=== PATIENT | male | born 1940 | race Caucasian/White ===

== ENCOUNTER 2016-05-12 12:16 | Inpatient (IN) | payer MEDICARE ==
[~2016-05-12] VITALS: Ht 170.2 cm; Wt 70.4 kg
[2016-05-12] VITALS (7 sets, daily range): BP systolic 105–132; BP diastolic 71–94; PULSE 81–108; RESP 15–23; O2SAT 95–100
[2016-05-12 13:18] LABS: BASOPHILS % (AUTO) 0.1 % (0-3); EOSINOPHILS % (AUTO) 0.1 % (0-5); MONOCYTES % (AUTO) 3.5 % (4-12); Mean Corpuscular Volume 91.5 fL (81-100); NEUTROPHILS % (AUTO) 91.1 % (40-74); Platelet Count 239 bil/L (150-400)
[2016-05-12] MEDS ORDERED: 0.9% Sodium Chloride 250 ML IV PRN (13:50)
[2016-05-12 13:53] LABS: INR 1.32 ratio
[2016-05-12 14:11] LABS: Magnesium 3.1 mg/dL (1.6-2.6)
[2016-05-12 14:12] LABS: TROPONIN T 0.015 ug/L (0.0-0.011)
--- NOTE | 2016-05-12 14:18 | DRSVH ---
PROCEDURE: X-RAY CHEST ONE VIEW, PORTABLE ([id number]) INDICATIONS: CHEST PAIN TECHNIQUE: One view of the chest was acquired. COMPARISON: None. FINDINGS: Surgical changes and devices: None. Lungs and pleura: No pleural effusions or pneumothorax. Lungs are clear. Lung volumes are decrease d Mediastinum: Mediastinal contours appear normal. Heart size is normal. Bones and chest wall: No suspicious bony lesions. Overlying soft tissues appear unremarkable. IMPRESSION: Low lung volumes and scattered atelectasis. Dictated by: Tejas Wise M.D. on 05/12/2016 at 14:15 Approved by: Tejas Wise M.D. on 05/12/2016 at 14:16
[2016-05-12] MEDS ORDERED: MULT-432 PO (14:22)
[2016-05-12] MEDS ORDERED: ASPI-973 PO (14:22)
[2016-05-12] MEDS ORDERED: Insulin Human REGular-Omnicell 100 Unit/mL IV ONE (14:25)
[2016-05-12] MEDS ORDERED: Furosemide 10 mg/mL 2 mL Inj IVPUSH ONE (14:25)
[2016-05-12] MEDS ORDERED: Sodium Polystyrene Sulfonate 0.25 Gm/mL 500 mL Suspension PO ONE (14:25)
[2016-05-12] MEDS ORDERED: Sodium Bicarb (50 mEq) 8.4% 1 mEq/mL 50 mL Syringe IVPUSH ONE (14:25)
[2016-05-12] MEDS ORDERED: Calcium GLUCOnate 10% (Gm) 1 Gm/10 mL Inj IVPUSH PRN (14:25)
--- NOTE | 2016-05-12 14:25 | ED.REPORT ---
HPI-Chest Pain 40 and Over Date of Service May 12, 2016 ED Provider: Tacos Bernal DO History of Present Illness: Jonathan Rivera is a 76 year old man with with a negative PMH on no medications having not seen a doctor in years. He presents with a several month history of increasingly debilitating back pain, an equally long history of recurrent epistaxis, and a 2 week history of increasing CARLSON with chest pain and SOB brought about by minimal exertion. He further complains of incontinence of bowel, and perhaps saddle anesthesia for quite a long time, he cannot recall exactly when it began but likely months to a year. Nursing Notes Stated Complaint: SHORTNESS OF BREATH/ CHEST PAIN Chief Complaint: Chest Pain Nursing Notes Reviewed: Yes Allergies: Coded Allergies: No Known Allergies (Unverified , 05/12/16) Scheduled Aspirin (Aspirin) 81 Mg Tablet 81 MG PO DAILY Multivitamin W-Minerals/Lutein (Pub Multivitamin 50 Plus Tab) 1 Each Tablet 1 EACH PO DAILY General Time Seen by MD: 13:20 Chief Complaint Chest pain Hx Obtained From: Patient Sudden in Onset?: No Onset Occurred: More than a week ago... (>6 months) Symptom Duration: Waxes and wanes Location: : Chest left Quality: Aching Migration/Movement: Reports: None Severity: Current: Mild Severity: Maximum: Severe Similar Sx Previous: Yes Past Medical History Past Medical History Denies, last physician encounter in the 1970s Smoking History Former Smoker Social History Alcohol Use: "Social" Review of Systems Constitutional: Reports: Weakness - generalized Respiratory: Reports: Dyspnea on exertion, Shortness of breath Cardiovascular: Reports: Chest pain, Dyspnea on exertion Musculoskeletal: Reports: Back pain, Joint pain Neurologic: Reports: Bladder dysfunction, Bowel dysfunction, Numbness Complete sys rev & neg: except as marked. Physical Exam Physical Exam Notes: Gen: A/O x3, pleasant cooperative gentleman in mild acute distress secondary to back pain Neck: Supple, non tender, full ROM HEENT: Nose not actively bleeding from nares, large pharyngeal blood clot in back of throat, arcus senilis BL CV: RRR, multiple loud murmurs at all anterior listening posts Abdomen soft, non tender, no organomegally Extr: Moderate BL LE edema, no cyanosis or clubbing Skin: Subtle uremic caceres about hairline and maxillary ridge, multiple pustular lesions on upper body Initial Vital Signs Vital Signs (First) Date Time Temp Pulse Resp B/P Pulse Ox O2 Delivery O2 Flow Rate FiO2 05/12/16 12:19 35.5 84 15 108/94 95 Room Air Initial VS: Reviewed Interpretation & Diagnostics Lab Results Interpretation Result Diagram: 05/12/16 1312 05/12/16 1312 Test 05/12/16 13:12 05/12/16 13:16 05/12/16 15:10 White Blood Count 10.9th/mm3 (3.8-10.1) Red Blood Count 2.47mil/mm3 (4.40-5.80) Hemoglobin 7.4g/dL (13.8-17.2) Hematocrit 22.6% (41.0-50.0) Mean Corpuscular Volume 91.5fL (81-100) Mean Corpuscular Hemoglobin 30.0pg (27.0-35.0) Mean Corpuscular Hemoglobin Concent 32.7% (32.0-37.0) Red Cell Distribution Width 12.7% (12.3-15.4) Platelet Count 239bil/L (150-400) Neutrophils (%) (Auto) 91.1% (40-74) Lymphocytes (%) (Auto) 3.9% (14-46) Monocytes (%) (Auto) 3.5% (4-12) Eosinophils (%) (Auto) 0.1% (0-5) Basophils (%) (Auto) 0.1% (0-3) Prothrombin Time 14.2sec (8.1-12.5) Prothromb Time International Ratio 1.32ratio Sodium Level 136mEq/L (134-144) Potassium Level 8.1mEq/L (3.5-5.2) Chloride Level 95mEq/L (97-108) Carbon Dioxide Level 6mmol/L (18-29) Blood Urea Nitrogen 237mg/dL (8-27) Creatinine 19.74mg/dL (0.76-1.27) Estimat Glomerular Filtration Rate 2mL/min (>59) Glucose Level 155mg/dL (60-99) Calcium Level 7.8mg/dL (8.5-10.1) Phosphorus Level 15.3mg/dL (2.5-4.9) Magnesium Level 3.1mg/dL (1.6-2.6) Iron Level 46ug/dL (35-150) Total Iron Binding Capacity 198ug/dL (250-450) Percent Iron Saturation 23%sat (15-50) Unsaturated Iron Binding 151.5ug/dL Ferritin 543ng/mL (30-400) Total Bilirubin 0.2mg/dL (0.0-1.2) Aspartate Amino Transf (AST/SGOT) 5U/L (0-50) Alanine Aminotransferase (ALT/SGPT) 5U/L (0-44) Alkaline Phosphatase 51U/L (25-160) Troponin T 0.015ug/L (0.0-0.011) Pro-B-Type Natriuretic Peptide 2478pg/mL (0-486) Total Protein 5.9g/dL (6.4-8.4) Albumin 3.3g/dL (3.4-5.0) Parathyroid Hormone (Intact) 320pg/mL (15-65) Hold Vincent Top Tube Received (Received) Lactic Acid Level 0.6mmol/L (0.4-2.0) Re-Eval/Medical Decision Med Decision/Clinical Course This is a gentleman who has not been seen by a doctor since 1970, routine labwork revealed the findings outlined above with grossly elevated BUN/Cr and K. Dr. Kramer from nephrology was urgently contacted and emergent dialysis was arranged. He will be admitted for an extensive evaluation and treatment program including but not limited to Dialysis, cardiovascular workup, and evaluation of his spinal orthopedic issues. Counseled Regarding: Diagnosis, Lab results, Need for admission Discharge & Departure Shift Change Sign-Out Patient Care Transferred: Yes Discussed Complaint(s): Yes Laboratory Evaluation: Lab evaluation discussed Imaging Studies: Imaging discussed Response to Therapy: Unchanged Primary Impression: End stage renal disease Additional Impressions: Hyperkalemia Symptomatic anemia Disposition: ADMITTED TO HOSPITAL Discharge Condition All VS Reviewed: Yes Condition: No Change Referrals: NOPCP Crit Care Except Billable Proc Time Spent: 30-74 minutes Services Performed: Patient management by me, Time spent at bedside, Reviewing test results Critical Care Notes: See MDM Attending Statement The patient was seen and examined together with Dr. Epperson on 05/12/16 and I have added additional information to the note above. Audi Epperson DO May 12, 2016 13:35 Tacos Bernal DO May 12, 2016 16:30
[2016-05-12] MEDS ORDERED: Calcium GLUCO 10% (mEq) Inj 9.3 MEQ in Dextrose 5% 100 ML IV ONE (14:30)
[2016-05-12] MEDS ORDERED: SODIUM CHLORIDE 0.9% IV ONE (14:35)
[2016-05-12] MEDS ORDERED: Furosemide 10 mg/mL 4 mL Inj IVPUSH ONE (14:35)
[2016-05-12] MEDS ORDERED: DESMOPRESSIN IV ONE (14:35)
[2016-05-12] MEDS ORDERED: Polyethylene Glycol (PEG) 17 Gm Powder PO PRN (14:45)
[2016-05-12] MEDS ORDERED: Senna-Docusate 8.6-50 mg Tablet PO PRN (14:45)
[2016-05-12] MEDS ORDERED: Ondansetron 2 mg/mL 2 mL Inj IVPUSH PRN (14:45)
[2016-05-12] MEDS ORDERED: Alum-Mag Hydrox-Simeth 30 mL Suspension PO PRN (14:45)
--- NOTE | 2016-05-12 16:03 | PCM.HPMED ---
Subjective Date of Service May 12, 2016 Primary Provider: Admitting Physician: Mark Perea MD Primary Care Physician: Nopblade Attending Physician: Mark Perea MD Admit Status: From the Emergency Department Chief Complaint: SOB with exertion and chest pain History of Present Illness: 76-year-old male with no past medical history, who has not seen a doctor since 1970, presents to the ED with 2-3 months of worsening shortness of breath with exertion, back pain, increasing chest pain, and persistent epistaxis. Labwork in the ED showed severe renal failure with a BUNs/cre of 237/19.74. On interview in the emergency department, the patient also attests to possible saddle anesthesia. Patient states that couple months ago he noticed increased exertional dyspnea but denies increased edema for orthopnea, but does attest to possible PND. He is unable to characterize the chest pain states that it does not radiate to his arm or neck, does not increase on exertion. Patient also complains of incontinence. Patient denies fever, chills, nausea, vomiting, radiating or tearing chest pain, sick contacts, dizziness, lightheadedness, abdominal pain, or recent illness. Labwork emergency department revealed severe kidney dysfunction with extreme creatinine 19.74 and a potassium of 8.1. and non-from nephrology was called and patient is being set up for emergent dialysis. Patient's chloride was 95 and bicarbonate was 6. Glucose was elevated 155. LFTs were normal, magnesium was elevated at 3.1, very mild elevated troponin of 0.015, BNP 2478. Patient will have a mild white count 10.7 and hemoglobin of 7.4 with neutrophil count of 91.1. Lactic acid was negative. Chest x-ray was unremarkable for cardiopulmonary disease. Review of Systems: Complete review of systems performed; pertinent positives negatives per history of present illness, all other systems reviewed and are negative. Allergies Coded Allergies: No Known Allergies (Unverified , 05/12/16) Home Medications Aspirin (Aspirin) 81 Mg Tablet 81 MG PO DAILY Multivitamin W-Minerals/Lutein (Pub Multivitamin 50 Plus Tab) 1 Each Tablet 1 EACH PO DAILY PMH No known medical history History of Alcohol abuse Surgical History No known surgical history Family History Mother of "obesity" Father of ALS Social History Occupation: retired Hx Alcohol Use: No (declines) Hx Substance Use: No (declines) Hx Tobacco Use: Yes Smoking Status: Former Smoker Living Arrangement: Alone Exam Vital Signs Vital Sign - Last Date Time Temp Pulse Resp B/P Pulse Ox O2 Delivery O2 Flow Rate FiO2 05/12/16 14:20 16 119/77 95 Room Air 05/12/16 12:19 35.5 84 Exam Gen.: Patient sitting comfortably in bed, no acute distress HEENT: Blood identified on the naris and some on the teeth, no lymphadenopathy, dentition, PERRLA, uremic caceres noted Cardiovascular: Patient appears to be somewhat dry, regular rate and rhythm, pericardial rub Respiratory: Rhonchus breath sounds, crackles laterally, mild inspiratory wheeze Abdomen: Nontender, positive bowel sounds, no masses, lower abdomen is distended likely from the bladder Extremities: Mild pitting edema in the lower legs bilaterally, decreased sensation on plantar surfaces, Neuro: Grossly neurologically intact Psych: Appropriate mood and affect Skin: Uremic caceres noted, no rashes Lab and Diagnostics Result Diagram: 05/12/16 1312 05/12/16 1312 X-Rays, CTs and MRIs Chest x-ray IMPRESSION: Low lung volumes and scattered atelectasis. Dictated by: Tejas Wise M.D. on 05/12/2016 at 14:15 12-lead ECG Patient sinus rhythm with a heart rate of 85, QTC of 49, and inverted T waves in the lateral leads. Assessment & Plan 76-year-old male with no past medical history not currently taking any medications and presents due to chest pain and shortness of breath severe kidney failure Severe acute on chronic kidney failure and hyperkalemia; present admission; ongoing -Etiology at this time for such an acute/chronic kidney failure is undetermined ; potassium on admission > 8; possibly diabetic nephropathy; patient also has a distended bladder suggesting obstructive -Suspect this is may be more of a chronic process -Elevated troponin likely due to kidney disease -Emergent dialysis with Dr. Kramer who is also consulting -Continue to follow labs -Hyperkalemia protocol initiated in the emergency department with 10 units of regular insulin, 1 g calcium gluconate, and D50; Kayexalate was not given as patient is being dialyzed -Vitamin D, PTH, HIV, hepatitis panel, phosphorus all pending -Follow morning labs -Renal ultrasound -[place] Catheter ordered Iron 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, chronic; is on admission; ongoing -Likely secondary to chronic kidney disease -Ferritin, iron, TIBC pending Acute on chronic Chest pain; present on admission; ongoing -Patient states that he has some chest pain today but denies radiation or tearing pain -Likely due to severe uremia due to kidney failure with possible pericarditis -Dialysis is being set up we will reevaluate tomorrow -We will continue to trend troponin and EKG when necessary for new chest pain Suspected chronic congestive heart failure -Patient presents with pericardial rub and some mild edema in the lower extremities; assess her kidney disease likely chronic suspect patient has ongoing heart failure -Patient is also complaining of increased dyspnea on exertion -Echocardiogram pending -BNP is elevated; in the setting of such severe kidney disease is likely meaningless Hyperglycemia; was on admission; ongoing -Patient is not on any medications that can cause hyperglycemia and presents with severe kidney disease, suggesting possible diabetic nephropathy -A1c pending -Medium correctional -Diabetic diet Hyperuremia with AG metabolic acidosis - Pt has bicarb of 6 on admit; extreme BUN - Dialysis Peripheral neuropathy; present on admission; ongoing -Patient has decreased sensation in the plantar surfaces of his feet -Questionable whether this is diabetic, alcoholic, or uremic neuropathy History of alcohol abuse -States he has not had a drink in couple weeks Disposition: Patient being admitted to the CCU due to severe hyperkalemia and kidney failure expected dialysis today. They are expected to remain in the hospital and inpatient status is stable require more than 2 nights due to severity of presentation, duration of treatment, risk of adverse events. Pain Evaluation: Adequate Pain Control Resuscitation Status: CPR: Attempt Resuscitation Attending Statement The patient was seen and examined together with Dr. May on 05/12/2016 and I agree with the history, exam and plan as outlined in the note above. . Louis May DO May 12, 2016 16:03 Mark Perea MD May 13, 2016 16:10
[2016-05-12 16:18] LABS: Phosphorus 15.3 mg/dL (2.5-4.9); Unsaturated Iron Binding 151.5 ug/dL
--- NOTE | 2016-05-12 16:41 | CONS ---
[address] [address] CONSULTATION REPORT PATIENT: PEEWEE THOMAS : 1940 MR#: [id number] ADMIT: 05/12/2016 JOB ID: [id number] DATE OF SERVICE: 05/12/2016 NEPHROLOGY CONSULTATION: REASON FOR CONSULTATION: Management of severe uremia and hyperkalemia. CHIEF COMPLAINT: Malaise and back pain. PRESENT ILLNESS: This is a 76-year-old gentleman without significant past medical history except chronic back pain. He has not seen any physician since 1970. He reported that he has had chronic lower back pain for decades in which he has taken baby aspirin and Aleve as needed. Over the past two months, he started to have worsening malaise, generalized weakness, worsening back pain. He reports having bowel and bladder incontinence. He also has some dyspnea on exertion, lower extremity swelling over the past couple weeks. He has had recurrent epistaxis, unknown onset. The patient has no urge to go, no frequency, no urgency. The onset of the symptoms was unknown. He does not have any fever or chills. No nausea, vomiting. He does have loose stool due to incontinence. He does not know the amount of the stool. The patient also reports having like a chest pressure but more toward the epigastric area and the left side at the top of the chest. The onset was unknown. The initial vitals showed the temperature of 35.5, pulse 84, respiratory rate 15, blood pressure 108/94, O2 sat 95% on room air. Initial BMP showed sodium of 136, potassium 8.1, chloride 95, bicarbonate of 6, BUN 237, creatinine 19.74. Glucose 155, calcium 5.8, magnesium 3.1. EKG did not show any peaked T-wave. No significant ST-T changes. Initial chest x-ray showed low lung volumes and scattered atelectasis. WBC was 10.9, hemoglobin was 7.4. PAST MEDICAL HISTORY: Unknown. The patient has not seen any physicians over the past three decades. He does not know whether he has history of diabetes, hypertension, heart disease, dyslipidemia, vasculitis or kidney stones. He does have history of chronic low back pain, now complaining of bowel and bladder incontinence. FAMILY HISTORY: Unknown. 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 He lives at home. He denies current use of alcohol, tobacco or illicit drugs. ALLERGIES: No known drug allergies. REVIEW OF SYSTEMS: Fourteen point review of system was performed. PHYSICAL EXAM: Vitals: Temperature 35.5, pulse 84, respiratory rate 16, blood pressure 119/77, O2 sat 95% on room air. General appearance: Chronically ill-looking, in no acute distress. HEENT: Alopecia, moderate pallor. No icteric sclerae. No JVD. Dry mucous membranes. Old blood noted on the nostrils. No active bleeding. Heart: Regular rhythm. Normal S1, S2. Positive pericardial friction rub. Abdomen: Soft, nontender, nondistended. No hepatosplenomegaly. Extremities: 2+ edema on the lower extremity. No cyanosis, no clubbing of fingers. LABORATORY: Sodium 136, potassium 8.1, chloride 95, bicarbonate 6, BUN 237, creatinine 19.74, glucose 155, calcium 7.8, magnesium 3.1. WBC 10.9, hemoglobin 7.4, INR 1.32. ASSESSMENT: This is a 76-year-old male who does not have significant past medical history except chronic low back pain with bowel and bladder incontinence who came to the hospital due to worsening malaise, lower extremity swelling and epistaxis. He was found to have severe renal insufficiency and hyperkalemia. Hemoglobin was 7.2. We do not know the onset of kidney insufficiency since he has not seen any physician for several decades. Given the evidence of anemia, the patient rather has chronic kidney disease and now reached end-stage renal disease. Per physical examination, the patient has the pericardial friction rub. Laboratory showed metabolic acidosis and hyperkalemia. We will arrange for an emergent dialysis. We will put a right femoral Adelfo catheter. We will start daily hemodialysis. We will first perform 2 hours of dialysis today using 2 K bath. The patient will have another dialysis again tomorrow. The etiology of severe renal insufficiency currently is undetermined. We need to rule out obstruction. I will order a stat kidney sonogram for now. If he is more stable, will later on order a CT of the abdomen and pelvis. I will order a urine protein electrophoresis looking for M protein given history of renal failure, anemia and back pain. Will order echocardiogram. Thank you for the consultation. We will monitor along with you.
--- NOTE | 2016-05-12 17:45 | PCM.PROC ---
Procedure Note Date of Service: May 12, 2016 Pre Procedure Diagnosis: Acute Renal Failure Post Procedure Diagnosis: Acute Renal Failure Procedure: Temporary dialysis catheter placement Provider and Tipple Greaser: Attending: Dr. Jayce Ortega Resident: Dr. Kelli Nelson Indication for Procedure: Dialysis Procedure Details: A time-out was completed verifying correct patient, procedure, site, positioning , and special equipment if applicable. The patient was placed in a dependent position appropriate for central line placement based on the vein to be cannulated. The patients right groin was prepped and draped in sterile fashion. 1% sodium bicarb buffered lidocaine was used to anesthetize the surrounding skin area. A double lumen 13.5 beninese Mahurkar catheter was introduced into the the common femoral vein using the Seldinger technique and under ultrasound guidance. The catheter was threaded smoothly over the guide wire and appropriate blood return was obtained. Each lumen of the catheter was evacuated of air and flushed with sterile saline. The catheter was then sutured in place to the skin and a sterile dressing applied. Perfusion to the extremity distal to the point of catheter insertion was checked and found to be adequate. Dr. Kramer was present for the entire procedure. Estimated Blood Loss: 10 cc The patient tolerated the procedure well and there were no complications. Post Procedure Plan: Hemodialysis Kelli Nelson DO May 12, 2016 17:45
[2016-05-12] MEDS ORDERED: Glucose 40% Oral Gel 15 Gm Tube PO PRN (18:20)
--- NOTE | 2016-05-12 18:23 | PCM.CONSUR ---
Subjective Date of Service: May 12, 2016 History of Present Illness Pt is a 76 y/o gentleman admitted to the medicine service from [facility] ER with renal failure, in need of urgent dialysis for serum potassium of 8.1 with a creatinine of 19.74. He was noted to be in urinary retention and gave a history of "urinary incontinence" for some weeks. He had not "seen a doctor" for many decades. He otherwise had anemia, LE edema, dyspnea, and complaints of epistaxis. Groin vas cath was placed for emergent hemodialysis Urology was asked for help with urethral catheter as "nurses unable to get catheter in." Unclear if any physician attempted. At exam he was undergoing hemodialysis and ready for an abdominal US at the bedside in CCU. Circ phallus. Procedure: Cleaned and prepped with betadyne, adequate lube instilled into urethra after verbal consent. 18fr irby catheter passed readily with gentle pressure. There was immediate return of 1800cc of clear dark yellow urine. Reason for Consultation I was asked by Dr Epperson for evaluation and treatment recommendations regarding a 76 y/o with renal failure, and urinary retention/incontinence. Allergy Allergies: Coded Allergies: No Known Allergies (Unverified , 05/12/16) Medications Aspirin (Aspirin) 81 Mg Tablet 81 MG PO DAILY (Reported) Multivitamin W-Minerals/Lutein (Pub Multivitamin 50 Plus Tab) 1 Each Tablet 1 EACH PO DAILY (Reported) Past Surgical History Surgeries: No Patient/Family Past Surgical: Positive for:: Accept Blood Products?, Denies:: Anesthesia Reactions (n/a), Blood Transfusions Social History Occupation: retired Hx Alcohol Use: No (declines) Hx Substance Use: No (declines) Hx Tobacco Use: Yes PMH HEENT History History of ENT Problems?: Yes HEENT History: Positive for:: Sinus Problem (frequent epistaxis) Other HEENT Pertinent History: pt is [place], not using hearing aids Cardiovascular History History of Heart Problems?: Yes Cardiovascular History: Positive for:: Chest Pain (current admission) Heart Murmur (presently detectable) Denies:: Cardiac Surgery Congestive Heart Failure Edema Hypertension Irregular Heartbeat Pacemaker Thrombophlebitis Respiratory History of Respiratory Problem: Yes Respiratory History: Positive for:: Dyspnea (current) Denies:: Asthma COPD Chest Surgery Emphysema Hemoptysis Pneumonia Tuberculosis Neurological History Hx Neurologic Problems?: No Gastrointestinal History HX of GI Problems?: Yes Other GI Pertinent History: recent (one month) bowel incontinence Genitourinary History Hx of Gu Problems?: Yes Other Pertinent History?: recent (one month) bladder incontinence Female/Male History Reproductive History Male: Denies: Prostate Problems Scrotal Mass Musculoskeletal History Hx Musculoskeletal Problems?: Yes Musculoskeletal History: Positive for:: Back Injury (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) Denies:: Joint Replacement Musculoskeletal Trauma Psycho Social History Hx of Psycho/Social Problems?: No Other History Hx Any Other Health Problems?: No Other History: Denies:: Cancer Hospitalization Thyroid Disease Diabetes: NoBedside Blood Glucose: 245 Social History Hx Alcohol Use: No (declines)Hx Substance Use: No (declines)Hx Tobacco Use: Yes Smoking Status: Former Smoker Living Arrangement: Alone Objective Exam Vital Signs & I/O Vital Sign- Last 8 Hours Date Time Temp Pulse Resp B/P Pulse Ox O2 Delivery O2 Flow Rate FiO2 05/12/16 16:12 93 23 126/83 98 Room Air 05/12/16 16:00 36.6 89 16 124/80 100 Room Air 05/12/16 14:20 16 119/77 95 Room Air 05/12/16 13:30 108 16 110/71 98 Room Air 05/12/16 12:19 35.5 84 15 108/94 95 Room Air Lab & Micro Results Laboratory Tests Test 05/12/16 13:12 05/12/16 13:16 05/12/16 15:10 05/12/16 17:45 White Blood Count 10.9th/mm3 (3.8-10.1) Red Blood Count 2.47mil/mm3 (4.40-5.80) Hemoglobin 7.4g/dL (13.8-17.2) Hematocrit 22.6% (41.0-50.0) Mean Corpuscular Volume 91.5fL (81-100) Mean Corpuscular Hemoglobin 30.0pg (27.0-35.0) Mean Corpuscular Hemoglobin Concent 32.7% (32.0-37.0) Red Cell Distribution Width 12.7% (12.3-15.4) Platelet Count 239bil/L (150-400) Neutrophils (%) (Auto) 91.1% (40-74) Lymphocytes (%) (Auto) 3.9% (14-46) Monocytes (%) (Auto) 3.5% (4-12) Eosinophils (%) (Auto) 0.1% (0-5) Basophils (%) (Auto) 0.1% (0-3) Prothrombin Time 14.2sec (8.1-12.5) Prothromb Time International Ratio 1.32ratio Sodium Level 136mEq/L (134-144) Potassium Level 8.1mEq/L (3.5-5.2) Chloride Level 95mEq/L (97-108) Carbon Dioxide Level 6mmol/L (18-29) Blood Urea Nitrogen 237mg/dL (8-27) Creatinine 19.74mg/dL (0.76-1.27) Estimat Glomerular Filtration Rate 2mL/min (>59) Glucose Level 155mg/dL (60-99) Calcium Level 7.8mg/dL (8.5-10.1) Phosphorus Level 15.3mg/dL (2.5-4.9) Magnesium Level 3.1mg/dL (1.6-2.6) Iron Level 46ug/dL (35-150) Total Iron Binding Capacity 198ug/dL (250-450) Percent Iron Saturation 23%sat (15-50) Unsaturated Iron Binding 151.5ug/dL Ferritin 543ng/mL (30-400) Total Bilirubin 0.2mg/dL (0.0-1.2) Aspartate Amino Transf (AST/SGOT) 5U/L (0-50) Alanine Aminotransferase (ALT/SGPT) 5U/L (0-44) Alkaline Phosphatase 51U/L (25-160) Troponin T 0.015ug/L (0.0-0.011) Pro-B-Type Natriuretic Peptide 2478pg/mL (0-486) Total Protein 5.9g/dL (6.4-8.4) Albumin 3.3g/dL (3.4-5.0) Parathyroid Hormone (Intact) 320pg/mL (15-65) Hold Vincent Top Tube Received (Received) Lactic Acid Level 0.6mmol/L (0.4-2.0) Microbiology 05/12/16 MRSA Surveillance Culture, Received Pending Result Diagram: 05/12/16 1312 05/12/16 1312 Review of Systems: Constitutional: Negative, except as otherwise mentioned in the history above. Ophthalmologic: Negative, except as otherwise mentioned in the history above. Cardiovascular: Negative, except as otherwise mentioned in the history above. Respiratory: Negative, except as otherwise mentioned in the history above. Gastrointestinal: Negative, except as otherwise mentioned in the history above. Genitourinary: Negative, except as otherwise mentioned in the history above. Musculoskeletal: Negative, except as otherwise mentioned in the history above. Neurological: Negative, except as otherwise mentioned in the history above. Psychiatric: Negative, except as otherwise mentioned in the history above. Hematologic/Lymphatic: Negative, except as otherwise mentioned in the history above. Allergic/Immunologic: Negative, except as otherwise mentioned in the history above. H&P Surgical Exam Exam General: Alert, Cooperative, Mild Distress HEENT: Within normal limits & unremarkable (dry mucosa, dried blood about nose/ nares, fair dentition) Neck: Within normal limits & unremarkable (midline trachea, no scars,) Respiratory: Clear to Auscultation (normal air movement, mild tachypnea, no audible ronchi or wheezes) Cardiac: Other (Reg rate, warm ext, pasty/pale, +LE edema, no scrotal edema) Abdomen: Soft (palpable bladder pre catheter, generally mildly tender, non- acute, soft after drainage of bladder) Breasts: Not Indicated Pelvic: Exceptions (circ phallus, nl meatus, WD scrotum, no edema, bilat desc testes, SLOAN deferred (vas cath and HD ongoing)) Musculoskeletal: No gross limb defects R groin vas cath Additional Information Answers simple questions appropriately speech clear symmetric face grossly neurologically intact Assessment & Plan Assessment Renal failure, likely at least partially if not totally related to urinary retention- BPH most likely cause. no strictures present (18fr catheter passed readily) Urinary incontinence was likely initially UUI and also ultimately overflow incontinence drained 1800cc initially 18fr irby in place Plan: medical management for renal failure at present. 18fr irby catheter in place, would leave for now He may ultimately f/u with Urology outpatient once his acute issues are dealt with. (would anticipate d/c home with irby catheter) if/when well enough, would start him on alpha billie (Tamsulosin 0.4) prior to d/c home Resuscitation Status: CPR: Attempt Resuscitation Radha Guillory MD May 12, 2016 18:23
[2016-05-12 18:30] LABS: APPEARANCE,URINE HAZY (CLEAR,HAZY); COLOR,URINE YELLOW (YELLOW)
[2016-05-12 18:31] LABS: OCCULT BLOOD,URINE LARGE (NEGATIVE); PH,URINE 5.5 (5.0-8.0); UROBILINOGEN,URINE NORMAL (NORMAL)
--- NOTE | 2016-05-12 18:51 | NUR ---
Admit/Urinary retention Pt arrived in CCU from ER at 1600. A&O x3, although mentation appears somewhat slow. BP stable, TELE SR 80s with inverted t-wave. 100% on RA. MD at bedside to do temp tunnel cath and start diaylsis stat. Care continues.
--- NOTE | 2016-05-12 18:51 | DRSVH ---
PROCEDURE: US RENAL SONOGRAM INDICATIONS: Severe renal insufficiency r/o obstruction TECHNIQUE: Real-time scanning was performed of the kidneys and bladder, with image documentation. COMPARISON: None. FINDINGS: Kidneys: Kidneys are normal in size. Right kidney measures 10.0 cm long; left kidney measures 11.1 cm long. Right renal cortical thickness is 1.6 cm; left renal cortical thickness is 1.8 cm. Renal c ortical echotexture is normal. There is mild bilateral hydronephrosis. No renal mass lesions. Bladder: The bladder is decompressed and a Washington catheter is present. The prostate measures 6.4 x 5. 9 x 6.6 cm. Miscellaneous: No free pelvic fluid. IMPRESSION: 1. Mild bilateral hydronephrosis. 2. Decompressed bladder and Washington catheter. 3. Enlarged prostate. Dictated by: Izabela Reese M.D. on 05/12/2016 at 18:48 Approved by: Izabela Reese M.D. on 05/12/2016 at 18:50
--- NOTE | 2016-05-12 20:18 | NUR ---
Dialysis note: 2 hr tx, Net UF 0.0 1st dialysis tx using right femoral cath. Cath accessed and ran without difficulty at prescribed QB of 200. Serologies drawn and sent to lab. Pt tolerated tx well. Blood returned and site secured with Heparin 1000 and caps. Some clotting noted in drip chamber. Will use Citrasate next tx. Pt remains alert and in stable condition. Please see DTR for complete record of VS.
[2016-05-12] MEDS: Insulin LISPRO 300 Unit/3 mL Inj SUBQ SCH (22:00)
[2016-05-13] VITALS (12 sets, daily range): BP systolic 86–112; BP diastolic 46–66; PULSE 82–96; RESP 12–17; O2SAT 95–99
[2016-05-13 03:14] LABS: BASOPHILS % (AUTO) 0 % (0-3); EOSINOPHILS % (AUTO) 0.8 % (0-5); Mean Corpuscular Volume 88.7 fL (81-100); NEUTROPHILS % (AUTO) 85.2 % (40-74); Platelet Count 208 bil/L (150-400)
[2016-05-13 04:09] LABS: Magnesium 2.5 mg/dL (1.6-2.6); Phosphorus 8.8 mg/dL (2.5-4.9)
[2016-05-13] MEDS: Insulin LISPRO 300 Unit/3 mL Inj SUBQ SCH ×4 (08:00→21:58)
[2016-05-13 10:09] LABS: BASOPHILS % (AUTO) 0.1 % (0-3); EOSINOPHILS % (AUTO) 0.6 % (0-5); MONOCYTES % (AUTO) 8.1 % (4-12); Mean Corpuscular Hemoglobin 29.3 pg (27.0-35.0); Mean Corpuscular Volume 87.1 fL (81-100); NEUTROPHILS % (AUTO) 85.4 % (40-74); Platelet Count 222 bil/L (150-400)
--- NOTE | 2016-05-13 10:14 | NUR ---
See Initial Assessment; EMR reviewed. Patient is a 76 y/o male that admitted with ESRD per H&P. home economics extension worker met with patient at bedside to discuss discharge planning, SW role reviewed and initial assessment complete. Patient reports that his Advance Directives are with Simon [phone] with [facility]. Patient states that he does not have any living relatives. Patient does not have any VA or LTC benefits. Patient has never had HH or SNF. Patient's insurance is [employer]. and patient does not have a PCP. Patient lives home alone in a two story home with 12steps to enter and 12 steps on the inside. Patient is independent at baseline and does not have any DME. Patient states that he will catch a taxi home when discharged. SW will continue to follow and assist patient with discharge planning needs. Plan: SW will continue to follow patient for discharge planning needs. Patient plans to discharge home via taxi. SW will continue to follow and assist patient throughout stay. Leslie Ivey LMSW, STACIA Addendum: 05/13/16 at 1026 by LESLIE SANTOS Amended: Links added.
--- NOTE | 2016-05-13 10:44 | NUR ---
Dialysis note Second HD tx X 2.5 hrs. No UF removed. See DTR for complete vitals. SBP in the 80's to low 100's. QB 250 thru R femoral catheter. PT rested comfortably thru tx without complaints. Catheter dwelled with 1000/1 U Heparin and secured. Pt will have tx again tomorrow.
--- NOTE | 2016-05-13 12:05 | PCM.PNNEPH ---
Subjective Date of Service May 13, 2016 Subjective 1st HD yesterday without complication, s/p blood transfusion 1 unit. Hb 7.7. s/p irby cath placement by Dr. Guillory, UOP 1800 ml after irby cath inserted. Now with gross hematuria, renal US mild hydronephrosis, right kidney 10 cm, left 11 cm, enlarged prostate. He is seen during HD today, stable BP. no complaints at this moment. Exam Vital Signs Vital Sign - Last Date Time Temp Pulse Resp B/P Pulse Ox O2 Delivery O2 Flow Rate FiO2 05/13/16 11:40 37.1 96 16 91/51 05/13/16 08:00 98 Room Air Intake and Output 05/12/16 05/12/16 05/13/16 Cumulative From/Thru 15:00 23:00 07:00 05/12/16 12:19 - 05/13/16 06:32 Intake Total 229 ml 200 ml 429 ml Output Total 1600 ml 1450 ml 3050 ml Balance -1371 ml -1250 ml -2621 ml Intake IV Total 229 ml 200 ml 429 ml Output Urine Total 1600 ml 1450 ml 3050 ml Ultrafiltrate 0 ml 0 ml Exam General appearance: Chronically ill-looking, in no acute distress. HEENT: Alopecia, moderate pallor. No icteric sclerae. No JVD. Dry mucous membranes. No active bleeding. Heart: Regular rhythm. Normal S1, S2. Positive pericardial friction rub. Abdomen: Soft, nontender, nondistended. No hepatosplenomegaly. Extremities: trace edema on the lower extremity. No cyanosis, no clubbing of fingers. : irby cath in place, gross hematuria noted. SKin: right femoral patty cath in place. Lab and Diagnostics Result Diagram: 05/13/16 0955 05/13/16 0224 X-Rays, CTs and MRIs Chest x-ray IMPRESSION: Low lung volumes and scattered atelectasis. Dictated by: Tejas Wise M.D. on 05/12/2016 at 14:15 12-lead ECG Patient sinus rhythm with a heart rate of 85, QTC of 49, and inverted T waves in the lateral leads. Plan Impression 1. Severe renal insufficiency:SIGIFREDO on CKD vs ESRD 2nd HD today, 2.5 hr, no UF, 3K, 35 HCO3, right patty cath, revaclear, DFR 500 , BFR 250. 2. Hyperkalemia, resolved. 3. Anemia of CKD 4. Enlarged prostate complicated by obstructive uropathy. 5. Metabolic acidosis. 6. VitD def. 7. Secondary hyperparathyroidism. Plan: Next HD in AM. check PSA level. 1 unit of PRBC today. 2DEcho. add renvenla, nephrovite and vitD. add aranesp 60 mcg subQx1. repeat BMP in am. Plan The patient will continue hyperbaric treatments. Will return () for treatment #() Yogesh Mueller MD May 13, 2016 12:05
[2016-05-13] MEDS: Phenylephrine Inj 20,000 MCG in 0.9% Sodium Chloride 250 ML IV SCH ×2 (12:06→21:32)
[2016-05-13] MEDS ORDERED: Darbepoetin Alfa 60 mCg/0.3 mL Inj IV ONE (12:10)
--- NOTE | 2016-05-13 12:40 | PCM.PNMED ---
Subjective Date of Service May 13, 2016 Subjective Patient tolerated dialysis fairly well last night. Dialysis today was performed for 2 and half hours with subsequent low blood pressures. Patient states that he is feeling tired today which was expected. Denies any chest pain , dizziness, lightheadedness, fever, chills, chest pain, or shortness of breath. Exam Vital Signs Vital Sign - Last Date Time Temp Pulse Resp B/P Pulse Ox O2 Delivery O2 Flow Rate FiO2 05/13/16 11:40 37.1 96 16 91/51 05/13/16 08:00 98 Room Air Intake and Output 05/12/16 05/12/16 05/13/16 Cumulative From/Thru 15:00 23:00 07:00 05/12/16 12:19 - 05/13/16 06:32 Intake Total 229 ml 200 ml 429 ml Output Total 1600 ml 1450 ml 3050 ml Balance -1371 ml -1250 ml -2621 ml Intake IV Total 229 ml 200 ml 429 ml Output Urine Total 1600 ml 1450 ml 3050 ml Ultrafiltrate 0 ml 0 ml Exam Gen.: Patient is sleeping but arousable, in no acute distress HEENT: PERRLA; no JVD Cardiovascular: Pericardial rub is gone, patient converted to A. fib around 11: 45 AM Respiratory: Bronchial breath sounds, crackles or lessens from yesterday Abdomen: Abdomen is tender around the iliac crest; bladder distention is gone, Irby in place Extremities: Mild pitting edema in the lower legs bilaterally, decreased sensation on plantar surfaces, Neuro: Grossly neurologically intact Psych: Appropriate mood and affect Skin: No rashes IVs and Medications Medications Reviewed: Medications were reviewed in detail Lab and Diagnostics Result Diagram: 05/13/16 0955 05/13/16 0224 X-Rays, CTs and MRIs Chest x-ray IMPRESSION: Low lung volumes and scattered atelectasis. Dictated by: Tejas Wise M.D. on 05/12/2016 at 14:15 12-lead ECG Patient sinus rhythm with a heart rate of 85, QTC of 49, and inverted T waves in the lateral leads. Assessment & Plan 76-year-old male with no past medical history not currently taking any medications and presents due to chest pain and shortness of breath severe kidney failure Severe acute on chronic kidney failure and hyperkalemia; present admission; ongoing -Etiology at this time likely chronic kidney failure; potassium on admission > 8 ; possibly diabetic nephropathy; patient also has a distended bladder obstructive -Elevated troponin and paricalcitol, likely due to kidney disease -Dialysis again today for 2-1/[address] Kramer's orders; -Continue to follow labs -Hyperkalemia protocol initiated in the emergency department with 10 units of regular insulin, 1 g calcium gluconate, and D50; Kayexalate was not given as patient is being dialyzed -HIV, hepatitis panel neg -Renal ultrasound revealed bilateral mild hydronephrosis, enlarged prostate -Irby Catheter placed with 1800 mL drained after insertion Postdialysis hypotension; ongoing -required emergent dialysis last night, and dialysis again this morning, with anticipated dialysis again tomorrow due to his severe renal failure -developed hypotension with maps hovering in the low to mid 50s -states that he feels tired but denies any chest pain or dizziness or lightheadedness -having a second unit of PRBCs transfused; hypotension does not resolve phenylephrine will be given through peripheral line and central line placed New a-fib; npoa; ongoing -Likely due to chronic heart disease and fluid dysequilibrium -Currently bleeding and will not start amticoagulation -Rate currently 80's-90's Vitamin D deficiency - Vitamin D replacement - Bone density evaluation outpatient Secondary Hyperparathyroidism; poa; ongoing - PTH 320; hyperphosphatemia - Dialysis and phos/ca following - Expected due to renal failure - no cinacalcet as pt is already on dialysis Hematuria, traumatic; npoa, ongoing -Difficult irby placement with continued hematuria 18 hours post placement -H&H < 7 likely not due to hematuria but rather loss from multiple sources and high BUN Iron 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, chronic; is on admission; ongoing -Likely secondary to chronic kidney disease -Iron, TIBC normal; ferritin elevated Acute on chronic Chest pain; present on admission; ongoing -Patient states that he has some chest pain today but denies radiation or tearing pain -Likely due to severe uremia due to kidney failure with possible pericarditis -We will continue to trend troponin -No new chest pain -Pt did convert into A-fib today per EKG Suspected chronic congestive heart failure -Patient presents with pericardial rub and some mild edema in the lower extremities; assess her kidney disease likely chronic suspect patient has ongoing heart failure -Patient is also complaining of increased dyspnea on exertion -Echocardiogram pending -BNP is elevated; in the setting of such severe kidney disease is likely meaningless Hyperglycemia; was on admission; ongoing -Patient is not on any medications that can cause hyperglycemia and presents with severe kidney disease, suggesting possible diabetic nephropathy -A1c pending -Medium correctional -Diabetic diet Hyperuremia with AG metabolic acidosis - Pt has bicarb of 6 on admit; extreme BUN - Dialysis - Bicarbonate is rebounding Peripheral neuropathy; present on admission; ongoing -Patient has decreased sensation in the plantar surfaces of his feet -Questionable whether this is diabetic, alcoholic, or uremic neuropathy History of alcohol abuse -States he has not had a drink in couple weeks Disposition: Patient will continue in the CCU with possible initiation of phenylephrine or norepinephrine and central line placements afternoon pending persistent hypotension. Blood products are being transfused which may help delay the need for pressure support. Patient seen and examined . Plan of care discussed with surgical resident : Nolan May The above documentation reviewed and edited where applicable Case discussed at length during ,multidisciplinary round VTE Mechanical Devices: Intermittant Pneumatic CD Resuscitation Status: CPR: Attempt Resuscitation Louis May DO May 13, 2016 12:40 Audi Guerrero MD May 14, 2016 11:15
[2016-05-13] MEDS: Vitamin B Complex/Vit C Tablet PO SCH (12:58)
[2016-05-13] MEDS: Ergocalciferol (Vit D2) 50,000 Unit Capsule PO SCH (12:58)
[2016-05-13 15:25] LABS: BASOPHILS % (AUTO) 0.1 % (0-3); MONOCYTES % (AUTO) 11.1 % (4-12); Mean Corpuscular Hemoglobin 28.8 pg (27.0-35.0); Mean Corpuscular Volume 86.8 fL (81-100); NEUTROPHILS % (AUTO) 81.1 % (40-74); Platelet Count 188 bil/L (150-400)
--- NOTE | 2016-05-13 16:32 | NUR ---
BP/hematuria Pt's BP trending down during dialysis, MAPs in the lows 60s. Per MD, start phenylephrine if pt's MAP is less than 65 and pt is symptomatic or less than 55 if not symptomatic. Pt's BP fluctuating between 60 and 65. Pt denies any CP, SOB, dizziness. Urine output adequate with gross hematuria after Washington placement by urology yesterday. Pt had unit of blood transfused this morning, no adverse reaction. Pt tolerated well. Frequent rounding. Pt able to move independently in bed, sleeping majority of shift.
--- NOTE | 2016-05-13 17:50 | DRSVH ---
[facility] [address] [place] [address] Echocardiogram Report Name: PEEWEE THOMAS FStudy Date : 05/13/2016 Height: 68 in Hospital Exam Location: [facility] Weight: 180 lb Gender: Male BSA: 2.0 m2 : 1940 Age: 76 yrs BP: 100/64 mmHg Reason For Study: MURMUR Ordering Physician: Performed By: Rita Foote Interpretation Summary The left ventricle is normal in size. There is moderate global hypokinesis of the left ventricle. Left ventricular ejection fraction is estimated to be 40 +/- 5%. There is mild aortic valve sclerosis. There is mild aortic regurgitation. The IVC is dilated (diameter is greater than 2.1 cm) yet it collapses greater than 50% with a sniff. This suggests a right atrial pressure of 8 mm Hg. There is no prior echocardiogram noted for this patient. No other echocardiographic abnormalities seen. Procedure: There is no prior echocardiogram noted for this patient. The patient was in atrial fibrillation with controlled ventricular rate during the exam. Left Ventricle: The left ventricle is normal in size. There is normal left ventricular wall thickness. Left ventricular ejection fraction is estimated to be 40 +/- 5%. There is moderate global hypokinesis of the left ventricle. Spectral Doppler of the mitral valve is reversed, with an E/A wave ratio < 1.0. Right Ventricle: The right ventricle grossly appears normal in size with probable normal systolic function. Atria: The left atrium grossly appears normal in size. The right atrium grossly appears normal in size. Mitral Valve: The mitral valve leaflets appear normal. There is no evidence of stenosis, fluttering, or prolapse. There is mild mitral regurgitation. Aortic Valve: The aortic valve is trileaflet. The aortic valve opens well. There is mild aortic valve sclerosis. There is mild aortic regurgitation. Tricuspid Valve: The tricuspid valve is not well visualized, but is grossly normal. There is a trace or physiologic amount of tricuspid regurgitation. Pulmonary artery pressures cannot be estimated because of the lack of a measurable TR jet velocity. Pulmonic Valve: The pulmonic valve is not well visualized. There is a trace or physiologic amount of pulmonic regurgitation. Great Vessels: The aortic root is mildly dilated. The ascending aorta could not be visualized. Mildly dilated aortic arch. The pulmonary artery is not well visualized, but is probably normal size. The IVC is dilated (diameter is greater than 2.1 cm) yet it collapses greater than 50% with a sniff. This suggests a right atrial pressure of 8 mm Hg. Pericardium/ Pleura There is no pericardial effusion. There is no pleural effusion. MMode/2D Measurements & Calculations LVIDd: 4.8 cm LA dimension: 3.8 cm RA long axis LVOT diam: 2.2 cm LVIDs: 3.3 cm AoV Opening FS: 32.1 % LA A2 area: 24.4 cm RA area IVSd: 0.84 cm LA A4 area: 24.9 cm Ao root diam LVPWd: 1.1 cm LA length (vol) : 18.6 cm RA vol Ao Arch Diam (Prox LA vol: 90.1 ml : 56.8 ml Trans): 3.5 cm LA vol index RA : 29.0 mm/ RVDd major IVC diam: 2.2 cm : 5.9 cm LV ibarra. diameter/BSA LV sys. diameter/BSA (cm/m^2): 2.5 (cm/m^2): 1.7 Doppler Measurements & Calculations Ao V2 max MV E max singh MV E/A: 0.63 PA V2 max : 134.6 cm/sec : 50.5 cm/sec Med Peak E' Singh : 96.1 cm/sec Ao max P.2 mmHg MV A max singh PA mean P.1 mmHg Ao mean P.5 mmHg : 79.9 cm/sec E/E' med: 7.2 PA Accel Time LVOT Max Singh Lat Peak E' Singh : 0.11 sec : 121.3 cm/sec NELSON(I,D): 3.4 cm E/E' lat: 5.1 sev ratio: 0.86 E/e' average Pulm A Revs Dur MV A dur : 0.11 sec Ao V2 mean LV V1 max PG PA V2 mean NELSON indexed to BSA : 101.7 cm/sec : 69.6 cm/sec (cm^2/m^2): 1.7 Ao V2 VTI: 21.4 cm LV V1 VTI NELSON(V,D): 3.5 cm2 : 18.5 cm Pulm A Revs Dur - MV A Dur: -0.02 msec Reading Physician:05:49 PM
[2016-05-13 21:29] LABS: BASOPHILS % (AUTO) 0.1 % (0-3); EOSINOPHILS % (AUTO) 0.9 % (0-5); MONOCYTES % (AUTO) 8.8 % (4-12); NEUTROPHILS % (AUTO) 84.3 % (40-74); Platelet Count 189 bil/L (150-400)
[2016-05-14] VITALS (9 sets, daily range): BP systolic 100–122; BP diastolic 58–91; PULSE 83–102; RESP 14–18; O2SAT 97–99
[2016-05-14 04:54] LABS: BASOPHILS % (AUTO) 0.1 % (0-3); EOSINOPHILS % (AUTO) 0.5 % (0-5); MONOCYTES % (AUTO) 11.4 % (4-12); Mean Corpuscular Hemoglobin 29.2 pg (27.0-35.0); Mean Corpuscular Volume 88.6 fL (81-100); NEUTROPHILS % (AUTO) 79.6 % (40-74); Platelet Count 210 bil/L (150-400)
[2016-05-14 05:20] LABS: Phosphorus 5.7 mg/dL (2.5-4.9)
[2016-05-14] MEDS: Phenylephrine Inj 20,000 MCG in 0.9% Sodium Chloride 250 ML IV SCH ×3 (06:58→23:27)
[2016-05-14] MEDS: Insulin LISPRO 300 Unit/3 mL Inj SUBQ SCH ×4 (08:00→21:07)
[2016-05-14] MEDS: Vitamin B Complex/Vit C Tablet PO SCH (08:25)
--- NOTE | 2016-05-14 11:31 | PCM.PNMED ---
Subjective Date of Service May 14, 2016 Subjective Patient seen and examined at bedside . No interval development. No new complains. No CP, no shortness of breath, no fever, no chills Plan of care discussed during multidisciplinary round Exam Vital Signs Vital Sign - Last Date Time Temp Pulse Resp B/P Pulse Ox O2 Delivery O2 Flow Rate FiO2 05/14/16 08:23 Supplement Oxygen 05/14/16 08:23 36.9 87 18 122/80 97 2.00 Intake and Output 05/13/16 05/13/16 05/14/16 Cumulative From/Thru 15:00 23:00 07:00 05/12/16 12:19 - 05/14/16 05:21 Intake Total 720 ml 400 ml 480 ml 2029 ml Output Total 0 ml 1800 ml 1300 ml 6150 ml Balance 720 ml -1400 ml -820 ml -4121 ml Intake Oral 400 ml 480 ml 880 ml IV Total 100 ml 529 ml Packed Cells 620 ml 620 ml Output Urine Total 1800 ml 1300 ml 6150 ml Ultrafiltrate 0 ml 0 ml Exam Gen.: Well nourished male, in bed comfortably. NAD , pleasant HEENT: PERRLA, wear glasses. scleare is anicteric Mouth : Moist oral mucosae, no oral thrush. Chest : No deformity. Normal respiratory effort Neck : Supple, trachea is midline , No JVD, no carotid bruit. Cardiovascular: S1S2, Irregular , no rubs , no murmur Lung : Clear bilaterally, no crackles, no wheezing Abdomen: Nontender, positive bowel sounds all quadrants, no masses : Washington catheter in place yielding bloody urine Extremities: No edema, No cyanosis . Right groin dialysis catheter in place. Neuro: Grossly non focal. AAO x 3 . Sling : No rash, no ulcers IVs and Medications Medications Reviewed: Medications were reviewed in detail Lab and Diagnostics Result Diagram: 05/14/1642905/14/16429 X-Rays, CTs and MRIs Chest x-ray IMPRESSION: Low lung volumes and scattered atelectasis. Dictated by: Tejas Wise M.D. on 05/12/2016 at 14:15 12-lead ECG Patient sinus rhythm with a heart rate of 85, QTC of 49, and inverted T waves in the lateral leads. Assessment & Plan 76-year-old male with no past medical history not currently taking any medications and presents due to chest pain and shortness of breath severe kidney failure 1. Acute on chronic Renal failure Likely medical renal disease (Hypertensive nephropathy and diabetic nephropathy ) . Chronic ROMERO less likely a culprit Ongoing dialysis day # 3 today. Metabolic acidosis improved as well as overall metabolic profile. Nephrology following . Renal US and hepatitis panel reviewed . 2 . Hyperkalemia : Due to # 1 : Improved 3. 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 Urology as outpatient 4. Bilateral Hydronephrosis : mild . Due to ROMERO. Improvement anticipated with [place] catheter . 5. New onset of Atrial Fibrillation : Rate is control. Obtain echocardiogram. Anticoagulation not possible at this time given ongoing gross hematuria TSH within normal limit 6. Hematuria : Traumatic [place] catheter? Monitor, this may worsen his anemia . Consider bladder irrigation Consider further PRBC transfusion i 7. Anemia of chronic disease ( Normocytic Hypochromic) : Due to renal failure , which seems to be chronicc 8. Secondary hyper parathyroidin 9. H/o heavy Alcoholism : Patient stated he quit a month ago . So far no sign of withdrawal 10. Type II diabetes : A1c 5.8. No significant stigmata of uncontrolled or long standing diabetes . Given her A1c , I think a diabetic diet is all what he needs for now . I don`t think his diabetes has little if any role in his chronic renal failure cbc bmp in am VTE Mechanical Devices: Intermittant Pneumatic CD Resuscitation Status: CPR: Attempt Resuscitation Time spent 35 minutes Audi Guerrero MD May 14, 2016 11:31
--- NOTE | 2016-05-14 13:16 | PCM.PNNEPH ---
Subjective Date of Service May 14, 2016 Subjective HD x 2 without complications. Electrolyte derangement improved. Continue having gross hematuria. Denies CP/SOB/N/V/F/C. PSA level 29.1. Exam Vital Signs Vital Sign - Last Date Time Temp Pulse Resp B/P Pulse Ox O2 Delivery O2 Flow Rate FiO2 05/14/16 11:44 37.2 86 17 112/64 99 Nasal Cannula 2.00 Intake and Output 05/13/16 05/13/16 05/14/16 Cumulative From/Thru 15:00 23:00 07:00 05/12/16 12:19 - 05/14/16 05:21 Intake Total 720 ml 400 ml 480 ml 2029 ml Output Total 0 ml 1800 ml 1300 ml 6150 ml Balance 720 ml -1400 ml -820 ml -4121 ml Intake Oral 400 ml 480 ml 880 ml IV Total 100 ml 529 ml Packed Cells 620 ml 620 ml Output Urine Total 1800 ml 1300 ml 6150 ml Ultrafiltrate 0 ml 0 ml Exam General appearance: Chronically ill-looking, in no acute distress. HEENT: Alopecia, moderate pallor. No icteric sclerae. No JVD. Dry mucous membranes. No active bleeding. Heart: Regular rhythm. Normal S1, S2. Abdomen: Soft, nontender, nondistended. No hepatosplenomegaly. Extremities: trace edema on the lower extremity. No cyanosis, no clubbing of fingers. : irby cath in place, gross hematuria noted. SKin: right femoral patty cath in place. Lab and Diagnostics Result Diagram: 05/14/16 0430 05/14/16 043 X-Rays, CTs and MRIs Chest x-ray IMPRESSION: Low lung volumes and scattered atelectasis. Dictated by: Tejas Wise M.D. on 05/12/2016 at 14:15 12-lead ECG Patient sinus rhythm with a heart rate of 85, QTC of 49, and inverted T waves in the lateral leads. Plan Impression 1. Severe renal insufficiency:SIGIFREDO on CKD vs ESRD. 2. Hyperkalemia, resolved. 3. Anemia of CKD s/p aranesp injection and blood transfusion. 4. Enlarged prostate complicated by obstructive uropathy. PSA 29.1, need to rule out prostate cancer. 5. Metabolic acidosis. 6. VitD def. 7. Secondary hyperparathyroidism. 8. Paroxysmal Afib. Plan: 3rd HD today. 4th HD in AM. continue renvela, nephrovite and vitD. repeat BMP in am. Yogesh Mueller MD May 14, 2016 13:16
--- NOTE | 2016-05-14 18:01 | NUR ---
Note Patient denied having any pain or discomfort during the shift. 3.5h dialysis today starting at 1443- patient tolerated dialysis well- he remained stable with stable BP- MD transferred patient to [facility] with telemetry status this afternoon. 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 Urine collecting in a [place] bag remained medium to dark tahira in color- no blood cloths were noted- MD aware and ordered follow up labs for tomorrow am.
--- NOTE | 2016-05-14 18:46 | NUR ---
Dialysis note: 3 1/2 hr tx. Net UF 0.0 Accessed right femoral catheter A-V and V-A and began tx with some alarms. Reversed back to A-A, V-V without alarms. Hypotensive, 91/54 HR 92 and 100 mL NS given. End of tx VS 109/63 89. Limbs dwelled with Heparin 1000 and secured with tape. Pt stable and eating. Please see DTR for complete record of VS.
[2016-05-15] VITALS (9 sets, daily range): BP systolic 95–119; BP diastolic 62–73; PULSE 80–96; RESP 12–18; O2SAT 95–99
[2016-05-15 04:52] LABS: BASOPHILS % (AUTO) 0.1 % (0-3); EOSINOPHILS % (AUTO) 2.8 % (0-5); MONOCYTES % (AUTO) 10.3 % (4-12); Mean Corpuscular Hemoglobin 29.5 pg (27.0-35.0); NEUTROPHILS % (AUTO) 74.3 % (40-74); Platelet Count 205 bil/L (150-400)
[2016-05-15] MEDS: Insulin LISPRO 300 Unit/3 mL Inj SUBQ SCH ×4 (07:36→21:37)
[2016-05-15] MEDS: Vitamin B Complex/Vit C Tablet PO SCH (07:57)
[2016-05-15] MEDS: Phenylephrine Inj 20,000 MCG in 0.9% Sodium Chloride 250 ML IV SCH (11:16)
--- NOTE | 2016-05-15 13:46 | PCM.PNMED ---
Subjective Date of Service May 15, 2016 Subjective Patient did well overnight. Feeling better. Dialysis scheduled for this afternoon. Exam Vital Signs Vital Sign - Last Date Time Temp Pulse Resp B/P Pulse Ox O2 Delivery O2 Flow Rate FiO2 05/15/16 12:15 96 14 95/65 97 Nasal Cannula 2.00 05/15/16 07:50 37.2 Intake and Output 05/14/16 05/14/16 05/15/16 Cumulative From/Thru 15:00 23:00 07:00 05/12/16 12:19 - 05/15/16 06:06 Intake Total 1250 ml 175 ml 3454 ml Output Total 1700 ml 750 ml 8600 ml Balance -450 ml -575 ml -5146 ml Intake Oral 1250 ml 175 ml 2305 ml IV Total 529 ml Packed Cells 620 ml Output Urine Total 1700 ml 750 ml 8600 ml Ultrafiltrate 0 ml 0 ml Exam Gen.: Patient is awake and comfortable HEENT: PERRLA; no JVD Cardiovascular: Regular no murmurs rubs or gallops Respiratory: CTA bilateral Abdomen: Nontender, nondistended, Irby in place Extremities: Mild pitting edema in the lower legs bilaterally, decreased sensation on plantar surfaces, Neuro: Grossly neurologically intact Psych: Appropriate mood and affect Skin: No rashes IVs and Medications Medications Reviewed: Medications were reviewed in detail Lab and Diagnostics Result Diagram: 05/15/1642105/15/16 042 X-Rays, CTs and MRIs Chest x-ray IMPRESSION: Low lung volumes and scattered atelectasis. Dictated by: Tejas Wise M.D. on 05/12/2016 at 14:15 12-lead ECG Patient sinus rhythm with a heart rate of 85, QTC of 49, and inverted T waves in the lateral leads. Assessment & Plan 76-year-old male with no past medical history not currently taking any medications and presents due to chest pain and shortness of breath severe kidney failure Severe acute on chronic kidney failure and hyperkalemia; present admission; ongoing -Etiology may be multifactorial the patient denies hypertension, he is not diabetic, but he does have a very enlarged prostate suggesting obstructive etiology. -Renal ultrasound revealed bilateral mild hydronephrosis, enlarged prostate -Elevated troponin and procalcitonin, likely due to kidney disease -Irby Catheter placed with 1800 mL drained after insertion; in place -Dialysis again today -SPEP is pending Postdialysis hypotension; intermittent; observing -required emergent dialysis last night, and dialysis again this morning, with anticipated dialysis again tomorrow due to his severe renal failure -developed hypotension with maps hovering in the low to mid 50s -states that he feels tired but denies any chest pain or dizziness or lightheadedness -blood transfusing during dialysis Systolic heart failure, likely chronic; poa, ongoing -Echo reveals a global hypokinesis of the left ventricle with ejection fraction of 40%. -Patient is also complaining of increased dyspnea on exertion -We will discharge home on beta billie and DIANDRA inhibitor once blood pressure stable and dialysis plan established New a-fib; npoa; resolved -Likely due to chronic heart disease and fluid dysequilibrium -Currently bleeding and will not start anticoagulation -Rate currently 80's-90's Vitamin D deficiency - Vitamin D replacement - Bone density evaluation outpatient Secondary Hyperparathyroidism; poa; ongoing - PTH 320; hyperphosphatemia - Dialysis and phos/ca following - Expected due to renal failure - no cinacalcet as pt is already on dialysis - Renvela Hematuria, traumatic; npoa, ongoing -Difficult irby placement with continued hematuria 18 hours post placement -H&H < 7 likely not due to hematuria but rather loss from multiple sources and high BUN Iron 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, chronic; is on admission; ongoing -Likely secondary to chronic kidney disease -Iron, TIBC normal; ferritin elevated Acute on chronic Chest pain; present on admission; ongoing -Patient states that he has some chest pain today but denies radiation or tearing pain -Likely due to severe uremia due to kidney failure; no pericarditis -Pt did convert into A-fib for 12 hours back in sinus rhythm Hyperglycemia; was on admission; ongoing -Patient is not on any medications that can cause hyperglycemia and presents with severe kidney disease, suggesting possible diabetic nephropathy -A1c 5.8 -Medium correctional -Renal diet Hyperuremia with AG metabolic acidosis - Pt has bicarb of 6 on admit; extreme BUN - Dialysis - Bicarb is rebounding Peripheral neuropathy; present on admission; ongoing -Patient has decreased sensation in the plantar surfaces of his feet -Questionable whether this is diabetic, alcoholic, or uremic neuropathy History of alcohol abuse -States he has not had a drink in couple weeks Disposition: Patient is currently in the PCC and suspected discharge in the next couple to few days. VTE Mechanical Devices: Intermittant Pneumatic CD Resuscitation Status: CPR: Attempt Resuscitation Louis May DO May 15, 2016 13:46
--- NOTE | 2016-05-15 14:40 | PCM.PNNEPH ---
Subjective Date of Service May 15, 2016 Subjective The patient has had some improvement in his renal function. Last 24 hours he has had about 3 L of urine out although remains dark red. He denies any chest pain, shortness of breath, cough, wheezing, nausea or vomiting. His blood pressures have been in the low 100 range. This morning his hemoglobin is 7.7, sodium is 140, potassium 4.0, chloride 102, bicarbonate 24, P1 at 47 and 3.1 respectively. Exam Vital Signs Vital Sign - Last Date Time Temp Pulse Resp B/P Pulse Ox O2 Delivery O2 Flow Rate FiO2 05/15/16 12:15 96 14 95/65 97 Nasal Cannula 2.00 05/15/16 07:50 37.2 Intake and Output 05/14/16 05/14/16 05/15/16 Cumulative From/Thru 15:00 23:00 07:00 05/12/16 12:19 - 05/15/16 06:06 Intake Total 1250 ml 175 ml 3454 ml Output Total 1700 ml 750 ml 8600 ml Balance -450 ml -575 ml -5146 ml Intake Oral 1250 ml 175 ml 2305 ml IV Total 529 ml Packed Cells 620 ml Output Urine Total 1700 ml 750 ml 8600 ml Ultrafiltrate 0 ml 0 ml Exam Neck supple without adenopathy thyromegaly or jugular venous distention. Lungs are clear to auscultation. Heart was regular with a soft systolic murmur. Abdomen is soft without any tenderness or rebound guarding masses or hepatosplenomegaly. Extremities show any evidence of any clubbing cyanosis or edema. Skin turgor is good news no evidence of any rashes. Lab and Diagnostics Result Diagram: 05/15/16 0422 05/15/16 0422 X-Rays, CTs and MRIs Chest x-ray IMPRESSION: Low lung volumes and scattered atelectasis. Dictated by: Tejas Wise M.D. on 05/12/2016 at 14:15 12-lead ECG Patient sinus rhythm with a heart rate of 85, QTC of 49, and inverted T waves in the lateral leads. Plan Impression Impression #1 bilateral hydronephrosis with obstructive uropathy. #2 acute kidney injury secondary #1 #3 hematuria #4 postobstructive diuresis. Recommendations #1 the patient was dialyzed today for 3-1/2 on a revaclear dialyzer, 3 potassium bath, and we will remove approximately half of fluid as tolerated. Following his dialysis treatment. The femoral dialysis catheter is appears is approved to be in recovery. Over the next several days will have to closely follow his intake, output, and laboratory parameters. Plan The patient will continue hyperbaric treatments. Will return () for treatment #() Murali Suarez DO May 15, 2016 14:40
--- NOTE | 2016-05-15 17:02 | NUR ---
Dialysis note: 3 1/2 hr tx, Net UF 100 dc'd tx 25 min early r/t alarms, clotting noted in drip chamber. Accessed right femoral cath without difficulty. QB 300 per MD order. 1 unit of blood given per order. Pt stable throughout. Femoral cath removed post tx, pressure applied x 15 min. secured with gauze and tegaderm. No bleeding noted. Pt returned to floor stable. Pt to stay flat on back for 2 hours. Please see DTR for complete record of VS.
--- NOTE | 2016-05-15 17:13 | NUR ---
Off unit: Pt off unit at 1215 for dialysis, returned to unit at 1715. Dialysis cath pulled by dialysis nurse, dressing CDI, pt to be bedrest until 1900. Care ongoing.
[2016-05-16] VITALS (7 sets, daily range): BP systolic 94–112; BP diastolic 56–68; PULSE 81–94; RESP 12–24; O2SAT 94–98
[2016-05-16 04:06] LABS: BASOPHILS % (AUTO) 0.2 % (0-3); EOSINOPHILS % (AUTO) 3.9 % (0-5); MONOCYTES % (AUTO) 10.7 % (4-12); Mean Corpuscular Hemoglobin 29.3 pg (27.0-35.0); Mean Corpuscular Volume 90.4 fL (81-100); NEUTROPHILS % (AUTO) 70.4 % (40-74); Platelet Count 234 bil/L (150-400)
[2016-05-16 04:21] LABS: Magnesium 1.6 mg/dL (1.6-2.6)
--- NOTE | 2016-05-16 05:23 | NUR ---
Output Pt had approx. 2100cc of urine output this shift; dark purple in color; irby patent and draining to gravity. Pt not OOB this shift, denies turning r/t back discomfort, but repositions self in bed. VSS. Tele SR 90s.
[2016-05-16] MEDS: Insulin LISPRO 300 Unit/3 mL Inj SUBQ SCH ×4 (08:00→22:00)
[2016-05-16] MEDS: Vitamin B Complex/Vit C Tablet PO SCH (09:29)
--- NOTE | 2016-05-16 11:25 | PCM.PNSURG ---
Subjective Date of Service: May 16, 2016 Date of Service: May 16, 2016 Visit Information: Reason for Visit ESRD Surgery/Surgery Date Post-Op Day # Date of Admission: May 12, 2016 at 15:36 Hospital Day # Subjective: Mr Rivera is in bed, having another IV placed. Objective Vital Sign- Last 8 Hours Date Time Temp Pulse Resp B/P Pulse Ox O2 Delivery O2 Flow Rate FiO2 05/16/16 11:06 81 05/16/16 09:24 37.1 94 12 94/56 97 Room Air 05/16/16 04:32 37.0 85 15 108/68 96 Room Air Intake and Output- Last 8 Hour 05/16/16 Cumulative From/Thru 07:00 05/12/16 12:19 - 05/16/16 05:37 Intake Total 550 ml 4004 ml Output Total 2100 ml 36596 ml Balance -1550 ml -6796 ml Intake Oral 550 ml 2855 ml IV Total 529 ml Packed Cells 620 ml Output Urine Total 2100 ml 51560 ml Ultrafiltrate 100 ml # Bowel Movements 0 0 Catheters: Urethral 2 Way Irby (thin, wine colored urine in tubing and bag) Result Diagram: 05/16/16 0301 05/16/16 0301 Assessment & Plan Impression Gross hematuria, ARF. Problems: Plan We discussed his gross hematuria - Not severe We talked about outpatient follow up - He stated he hadn't seen a physician since 1970s, and "if it isn't broken, don 't fix it." - I advised him that the hematuria would merit further evaluation He will continue his irby catheter as an outpt and f/u with urology Resuscitation Status: CPR: Attempt Resuscitation Keyonna Moreno MD May 16, 2016 11:25
--- NOTE | 2016-05-16 11:53 | PCM.PNMED ---
Subjective Date of Service May 16, 2016 Subjective Patient has had consistent dialysis over the last couple of days. Is tolerating it well but is anxious to get out of the hospital. Denies headache, additional bleeding, chest pain, abdominal pain, dysuria. Patient has a Irby and is draining elvia fluid. A short Dr. Suarez and urology is being consulted by him. Exam Vital Signs Vital Sign - Last Date Time Temp Pulse Resp B/P Pulse Ox O2 Delivery O2 Flow Rate FiO2 05/16/16 11:06 81 05/16/16 09:24 37.1 12 94/56 97 Room Air 05/15/16 12:15 2.00 Intake and Output 05/15/16 05/15/16 05/16/16 Cumulative From/Thru 15:00 23:00 07:00 05/12/16 12:19 - 05/16/16 05:37 Intake Total 550 ml 4004 ml Output Total 100 ml 2100 ml 72676 ml Balance -100 ml -1550 ml -6796 ml Intake Oral 550 ml 2855 ml IV Total 529 ml Packed Cells 620 ml Output Urine Total 2100 ml 91080 ml Ultrafiltrate 100 ml 100 ml # Bowel Movements 0 0 Exam Gen.: Patient is awake and comfortable HEENT: PERRLA; no JVD Cardiovascular: Regular no murmurs rubs or gallops Respiratory: CTA bilateral Abdomen: Nontender, nondistended, Irby in place Extremities: Mild pitting edema in the lower legs bilaterally, decreased sensation on plantar surfaces, Neuro: Grossly neurologically intact Psych: Appropriate mood and affect Skin: No rashes IVs and Medications Medications Reviewed: Medications were reviewed in detail Lab and Diagnostics Result Diagram: 05/16/16 0301 05/16/16 0301 X-Rays, CTs and MRIs Chest x-ray IMPRESSION: Low lung volumes and scattered atelectasis. Dictated by: Tejas Wise M.D. on 05/12/2016 at 14:15 12-lead ECG Patient sinus rhythm with a heart rate of 85, QTC of 49, and inverted T waves in the lateral leads. Assessment & Plan 76-year-old male with no past medical history not currently taking any medications and presents due to chest pain and shortness of breath severe kidney failure Severe acute on chronic kidney failure and hyperkalemia; present admission; ongoing -Etiology may be multifactorial the patient denies hypertension, he is not diabetic, but he does have a very enlarged prostate suggesting obstructive etiology. -Renal ultrasound revealed bilateral mild hydronephrosis, enlarged prostate -Elevated troponin and procalcitonin, likely due to kidney disease -Irby Catheter placed with 1800 mL drained after insertion; in place but draining wine colored fluid -Dialysis catheter removed -SPEP appears to be negative -Awaiting nephrology input on plan going forward for patient's dialysis versus renal recovery Hematuria, traumatic; npoa, ongoing -Difficult irby placement with continued hematuria 18 hours post placement -H&H < 7 likely not due to hematuria but rather loss from multiple sources and high BUN -Urology consult. due to persistence of hematuria Systolic heart failure, likely chronic; poa, ongoing -Echo reveals a global hypokinesis of the left ventricle with ejection fraction of 40%. -Patient is also complaining of increased dyspnea on exertion -We will discharge home on beta billie and DIANDRA inhibitor once blood pressure stable and dialysis plan established New a-fib; npoa; resolved -Likely due to chronic heart disease and fluid dysequilibrium -Currently bleeding and will not start anticoagulation -Rate currently 80's-90's Vitamin D deficiency - Vitamin D replacement - Bone density evaluation outpatient Secondary Hyperparathyroidism; poa; ongoing - PTH 320; hyperphosphatemia - Dialysis and phos/ca following - Expected due to renal failure - no cinacalcet as pt is already on dialysis - Renvela Postdialysis hypotension; intermittent; resolved -required emergent dialysis last night, and dialysis again this morning, with anticipated dialysis again tomorrow due to his severe renal failure -developed hypotension with maps hovering in the low to mid 50s -states that he feels tired but denies any chest pain or dizziness or lightheadedness -blood transfusing during dialysis Anemia of CKD s/p aranesp injection and blood transfusion, chronic; is on admission; ongoing -Likely secondary to chronic kidney disease -Iron, TIBC normal; ferritin elevated Acute on chronic Chest pain; present on admission; resolved -Patient states that he has some chest pain today but denies radiation or tearing pain -Likely due to severe uremia due to kidney failure; no pericarditis -Pt did convert into A-fib for 12 hours back in sinus rhythm Hyperglycemia; was on admission; controlled -Patient is not on any medications that can cause hyperglycemia and presents with severe kidney disease, suggesting possible diabetic nephropathy -A1c 5.8 -Medium correctional -Renal diet Hyperuremia with AG metabolic acidosis; resolved - Pt has bicarb of 6 on admit; extreme BUN - Dialysis - Bicarb is rebounding Peripheral neuropathy; present on admission; stable -Patient has decreased sensation in the plantar surfaces of his feet -Questionable whether this is diabetic, alcoholic, or uremic neuropathy History of alcohol abuse -States he has not had a drink in couple weeks Disposition: Dr. Suarez and nephrology are following along the appreciated assistance. Patient has numerous medical issues but should be stable to discharge once nephrology is able to sign off, as he has ongoing renal and urinary issues. VTE Mechanical Devices: Intermittant Pneumatic CD Resuscitation Status: CPR: Attempt Resuscitation Attending Statement Agree with assessment and plan as above - pt seen and separately discussed with resident, Dr. May. 40 minutes spent with evaluation and management Louis May DO May 16, 2016 11:53 Audi Fritz DO May 16, 2016 15:14
--- NOTE | 2016-05-16 14:42 | PCM.PNNEPH ---
Subjective Date of Service May 16, 2016 Subjective The patient appears to be in a postobstructive posterior KI diuresis. I am quite concerned because the copious amounts of urine that he is putting out is a dark red color. His hydronephrosis and obstructive uropathy along with his markedly enlarged prostate I feel should be addressed sooner rather than later. I will reconsult urology to see the patient today. Otherwise the patient insists on going home and I had to explain to him about the seriousness of his current situation. He has little memory of being on dialysis for the last several days and I am concerned certainly be a component of multi-infarct or some other type of dementia. Exam Vital Signs Vital Sign - Last Date Time Temp Pulse Resp B/P Pulse Ox O2 Delivery O2 Flow Rate FiO2 05/16/16 11:52 36.8 87 18 100/63 94 Room Air 05/15/16 12:15 2.00 Intake and Output 05/15/16 05/15/16 05/16/16 Cumulative From/Thru 15:00 23:00 07:00 05/12/16 12:19 - 05/16/16 05:37 Intake Total 550 ml 4004 ml Output Total 100 ml 2100 ml 03817 ml Balance -100 ml -1550 ml -6796 ml Intake Oral 550 ml 2855 ml IV Total 529 ml Packed Cells 620 ml Output Urine Total 2100 ml 07637 ml Ultrafiltrate 100 ml 100 ml # Bowel Movements 0 0 Exam Neck supple without adenopathy thyromegaly or venous distention. Lungs are clear to auscultation. Heart is regular and rhythmical with a soft systolic murmur. Lab and Diagnostics Result Diagram: 05/16/16 0301 05/16/16 0301 X-Rays, CTs and MRIs Chest x-ray IMPRESSION: Low lung volumes and scattered atelectasis. Dictated by: Tejas Wise M.D. on 05/12/2016 at 14:15 12-lead ECG Patient sinus rhythm with a heart rate of 85, QTC of 49, and inverted T waves in the lateral leads. Plan Impression Impression #1 obstructive uropathy with bilateral hydronephrosis. #2 acute kidney injury secondary to #1 #3 significant prostate enlargement number for hematuria #5 dehydration from postobstructive diuresis. Recommendations #1 over to start half-normal saline at 80 an hour. I will also contacted neurology and the patient will be seen today and the hematuria will be further evaluated. #2. Patient is in a diuretic phase need to closely monitor his intake, output, potassium, magnesium, and phosphate. Plan The patient will continue hyperbaric treatments. Will return () for treatment #() Murali Suarez DO May 16, 2016 14:42
--- NOTE | 2016-05-16 18:27 | NUR ---
Activity Pt stayed in bed for most of shift. Pt was encouraged to get up to chair for dinner. He stood with 1PA and needed minimal assistance from the bed to chair. He denied any dizziness, or lightheadedness. Pt output 1200cc this shift, urine appears red to dark orange in color.
[2016-05-17] VITALS (7 sets, daily range): BP systolic 105–127; BP diastolic 64–75; PULSE 77–89; RESP 18–20; O2SAT 95–98
[2016-05-17 03:45] LABS: BASOPHILS % (AUTO) 0.1 % (0-3); EOSINOPHILS % (AUTO) 2.4 % (0-5); MONOCYTES % (AUTO) 9.6 % (4-12); Mean Corpuscular Hemoglobin 29.1 pg (27.0-35.0); Mean Corpuscular Volume 91.4 fL (81-100); NEUTROPHILS % (AUTO) 73.2 % (40-74); Platelet Count 241 bil/L (150-400)
--- NOTE | 2016-05-17 03:46 | NUR ---
[place]/Confusion Groin site CDI, no C/O pain, no drainage, on room air , A&Ox2 , using call light intermittently, somewhat confused about time, thought it was afternoon,. [place] catheter draining red/purple fluid to gravity, denies pain 0.45 NS @ 80 Tele SR 80- PVC's
[2016-05-17 04:06] LABS: Magnesium 1.6 mg/dL (1.6-2.6); Phosphorus 3.2 mg/dL (2.5-4.9)
[2016-05-17] MEDS: Insulin LISPRO 300 Unit/3 mL Inj SUBQ SCH ×4 (08:00→21:13)
[2016-05-17] MEDS: Vitamin B Complex/Vit C Tablet PO SCH (08:32)
--- NOTE | 2016-05-17 09:24 | NUR ---
[facility] Signed
--- NOTE | 2016-05-17 11:20 | NUR ---
Social Work Note: Continued Discharge Planning Data& Assessment: Per MD pt is not medically ready to discharge at this time. Nephrology is still following for kidney function. Per MD in morning rounds, pt will continue to receive dialysis until pt kidney function improves. SW met with pt at bedside to discuss discharge planning and assess for any unmet needs. PT evaluation is pending. Pt requested information on Meals on Wheels. SW provided pt with Intake Line for [place] [employer] [place] to complete their screening process. Per pt request, pt also provided with [facility] Senior Resource Guide Book, Life Line information and quote from [employer] in case pt neighbor is unable to transport him home at time of discharge. Pt appreciative and denies any other needs. Pt explained he has been able to ambulate outside of bed today. SW to continue to follow for PT and MD evaluation and recommendations. SW to continue to follow. Plan: Anticipated discharge home via POV when medically ready. Pt provided with resources. SW to continue to follow for PT and MD evaluation and recommendations. SW to continue to follow. MEHRAN Balderas
--- NOTE | 2016-05-17 15:58 | PCM.PNMED ---
Subjective Date of Service May 17, 2016 Subjective Patient doing well at night. No complaints this morning. No fever, chills, nausea, vomiting, dysuria. His Irby is still in place and his urine and was detail manager in color than yesterday. Still light purple. Exam Vital Signs Vital Sign - Last Date Time Temp Pulse Resp B/P Pulse Ox O2 Delivery O2 Flow Rate FiO2 05/17/16 12:13 36.9 80 18 105/64 98 Room Air 05/15/16 12:15 2.00 Intake and Output 05/16/16 05/16/16 05/17/16 Cumulative From/Thru 15:00 23:00 07:00 05/12/16 12:19 - 05/17/16 05:57 Intake Total 1829 ml 5833 ml Output Total 1900 ml 62135 ml Balance -71 ml -6867 ml Intake Oral 400 ml 3255 ml IV Total 1429 ml 1958 ml Packed Cells 620 ml Output Urine Total 1900 ml 52970 ml Ultrafiltrate 100 ml # Bowel Movements 0 Exam Gen.: Patient's a good mood today. HEENT: PERRLA; no JVD Cardiovascular: Regular no murmurs rubs or gallops Respiratory: CTA bilateral Abdomen: Nontender, nondistended, Irby in place with light red/purple colored urine. Extremities: Mild pitting the lower extremities, improved since admit. Neuro: Grossly neurologically intact Psych: Appropriate mood and affect Skin: No rashes IVs and Medications Medications Reviewed: Medications were reviewed in detail Lab and Diagnostics Result Diagram: 05/17/16 0310 05/17/16 0310 X-Rays, CTs and MRIs Chest x-ray IMPRESSION: Low lung volumes and scattered atelectasis. Dictated by: Tejas Wise M.D. on 05/12/2016 at 14:15 12-lead ECG Patient sinus rhythm with a heart rate of 85, QTC of 49, and inverted T waves in the lateral leads. Assessment & Plan 76-year-old male with no past medical history not currently taking any medications and presents due to chest pain and shortness of breath severe kidney failure Severe acute on chronic kidney failure and hyperkalemia; present admission; ongoing -Etiology may be multifactorial the patient denies hypertension, he is not diabetic, but he does have a very enlarged prostate suggesting obstructive etiology. -Renal ultrasound revealed bilateral mild hydronephrosis, enlarged prostate -Irby Catheter in place; urine output looks clearer -Currently nephrology is awaiting to evaluate patient's need for further dialysis and to establish care plan moving forward -No current plan for permanent fistula at this time. May be necessary in the near future. Hematuria, traumatic; npoa, seems to be resolving -Difficult irby placement with continued hematuria 18 hours post placement -H&H < 7 likely not due to hematuria but rather loss from multiple sources and high BUN -Urology consulted and left a note for follow-up plans Systolic heart failure, likely chronic; poa, ongoing -Echo reveals a global hypokinesis of the left ventricle with ejection fraction of 40%. -Patient is also complaining of increased dyspnea on exertion -We will discharge home on beta billie and DIANDRA inhibitor once blood pressure stable and dialysis plan established New a-fib; npoa; resolved -Patient converted back to sinus rhythm -We will continue to monitor Vitamin D deficiency - Vitamin D replacement - Bone density evaluation outpatient Secondary Hyperparathyroidism; poa; ongoing - PTH 320; hyperphosphatemia - Dialysis and phos/ca following - Expected due to renal failure - no cinacalcet as pt is already on dialysis - Renvela Postdialysis hypotension; intermittent; resolved -required emergent dialysis last night, and dialysis again this morning, with anticipated dialysis again tomorrow due to his severe renal failure -developed hypotension with maps hovering in the low to mid 50s -states that he feels tired but denies any chest pain or dizziness or lightheadedness -blood transfusing during dialysis Anemia of CKD s/p aranesp injection and blood transfusion, chronic; is on admission; stable -Likely secondary to chronic kidney disease -Iron, TIBC normal; ferritin elevated Acute on chronic Chest pain; present on admission; resolved -Patient states that he has some chest pain today but denies radiation or tearing pain -Likely due to severe uremia due to kidney failure; no pericarditis -Pt did convert into A-fib for 12 hours back in sinus rhythm Hyperglycemia; was on admission; controlled -Patient is not on any medications that can cause hyperglycemia and presents with severe kidney disease, suggesting possible diabetic nephropathy -A1c 5.8 -Medium correctional -Renal diet Hyperuremia with AG metabolic acidosis; resolved - Pt has bicarb of 6 on admit; extreme BUN - Dialysis - Bicarb is rebounding Peripheral neuropathy; present on admission; stable -Patient has decreased sensation in the plantar surfaces of his feet -Questionable whether this is diabetic, alcoholic, or uremic neuropathy History of alcohol abuse -States he has not had a drink in couple weeks Disposition: Nephrology is currently wearing the patient responds. We will reassess him in the a.m. discuss with nephrology on plan to move forward. VTE Mechanical Devices: Intermittant Pneumatic CD Resuscitation Status: CPR: Attempt Resuscitation Time spent 30 minute Attending Statement Patient seen and examined with house staff, agree with all attached documentation. Louis May DO May 17, 2016 15:58 Tung Pérez MD May 18, 2016 11:33
--- NOTE | 2016-05-17 17:50 | PCM.PNNEPH ---
Subjective Date of Service May 17, 2016 Subjective Urology follow-up consult was reviewed and unfortunately it was a little assistance to the current situation with the patient. He is having some increased urine output consistent with a postobstructive diuresis and the urine is a bit patient financial counselor pink color compared to the daughter would always last few days. Patient is feeling better and denies any chest pain, shortness of breath , cough, wheezing or nausea and vomiting. His intake and output are 550 intake and 20/100 out. In the last 8 hours his already had 1900 out. His hemoglobin is 9.2, sodium is 140, potassium 3.8, chloride 101, bicarbonate 24, BUN and creatinine were 39 and 2.49 respectively. Exam Vital Signs Vital Sign - Last Date Time Temp Pulse Resp B/P Pulse Ox O2 Delivery O2 Flow Rate FiO2 05/17/16 16:34 37.0 89 20 110/66 95 Room Air 05/15/16 12:15 2.00 Intake and Output 05/16/16 05/16/16 05/17/16 Cumulative From/Thru 15:00 23:00 07:00 05/12/16 12:19 - 05/17/16 05:57 Intake Total 1829 ml 5833 ml Output Total 1900 ml 37216 ml Balance -71 ml -6867 ml Intake Oral 400 ml 3255 ml IV Total 1429 ml 1958 ml Packed Cells 620 ml Output Urine Total 1900 ml 67324 ml Ultrafiltrate 100 ml # Bowel Movements 0 Exam HEENT examination is remarkable for peripheral sclera. Neck is supple without adenopathy, thyromegaly, or obvious distention. Lungs are clear to auscultation. Heart is regular and rhythmical with a soft systolic murmur. Abdomen is soft without tenderness rebound guarding masses or hepatosplenomegaly. Extremities show any evidence of any clubbing cyanosis or edema. Skin turgor is diminished. Lab and Diagnostics Result Diagram: 05/17/16 0310 05/17/16 0310 X-Rays, CTs and MRIs Chest x-ray IMPRESSION: Low lung volumes and scattered atelectasis. Dictated by: Tejas Wise M.D. on 05/12/2016 at 14:15 12-lead ECG Patient sinus rhythm with a heart rate of 85, QTC of 49, and inverted T waves in the lateral leads. Plan Impression Impression #1 bilateral hydronephrosis number to obstructive uropathy #3 acute kidney injury secondary to #1 and #2 #3 hematuria #4 dehydration Recommendations #1 I would like to start him back on IV fluids as he is clearly an postobstructive diuresis. We need to follow his lab, intake, and output for the next several days. Plan The patient will continue hyperbaric treatments. Will return () for treatment #() Murali Suarez DO May 17, 2016 17:50
--- NOTE | 2016-05-17 18:01 | NUR ---
urine, ambulation pt. irby draining ludwig red urine with clots; denies pain or discomfort; md aware. Pt. up in room and hallway with fww and floor layer apprentice; worked with PT today. A&O to self and place; forgetful at times.
--- NOTE | 2016-05-17 21:42 | NUR ---
Medication Pt asks, "what medications will I be on when I leave the hospital?" I reviewed the medications that he is currently taking and the reasoning for each one. Pt verbalized understanding. Given education sheet on Flomax
[2016-05-18] VITALS (8 sets, daily range): BP systolic 88–124; BP diastolic 57–74; PULSE 77–84; RESP 16–20; O2SAT 95–99
[2016-05-18 04:12] LABS: BASOPHILS % (AUTO) 0.2 % (0-3); EOSINOPHILS % (AUTO) 2.1 % (0-5); MONOCYTES % (AUTO) 9.1 % (4-12); Mean Corpuscular Hemoglobin 29.1 pg (27.0-35.0); Mean Corpuscular Volume 92.2 fL (81-100); NEUTROPHILS % (AUTO) 75.5 % (40-74); Platelet Count 253 bil/L (150-400)
[2016-05-18 04:28] LABS: Magnesium 1.7 mg/dL (1.6-2.6); Phosphorus 3.7 mg/dL (2.5-4.9)
[2016-05-18] MEDS: Insulin LISPRO 300 Unit/3 mL Inj SUBQ SCH ×4 (08:00→22:00)
[2016-05-18] MEDS: Vitamin B Complex/Vit C Tablet PO SCH (08:36)
--- NOTE | 2016-05-18 11:41 | PCM.PNNEPH ---
Subjective Date of Service May 18, 2016 Subjective Patient is continuing to improve. His intake and output for the last 24 hours showed 4344 in and 4050 out. The last 8 hours he has had 2700 and urine output. His urine appears again less pink. His sodium this morning is 140, potassium 4.3, chloride 103, bicarbonate 20, BUN and creatinine were 68 and 2.6 respectively. Exam Vital Signs Vital Sign - Last Date Time Temp Pulse Resp B/P Pulse Ox O2 Delivery O2 Flow Rate FiO2 05/18/16 11:34 36.7 83 18 88/57 99 Room Air 05/15/16 12:15 2.00 Intake and Output 05/17/16 05/17/16 05/18/16 Cumulative From/Thru 14:59 22:59 06:59 05/12/16 12:19 - 05/18/16 06:32 Intake Total 2515 ml 1823 ml 97802 ml Output Total 2150 ml 2700 ml 02660 ml Balance 365 ml -877 ml -7379 ml Intake Oral 1280 ml 400 ml 4935 ml IV Total 1235 ml 1423 ml 4616 ml Packed Cells 620 ml Output Urine Total 2150 ml 2700 ml 54713 ml Ultrafiltrate 100 ml # Voids 1 1 # Bowel Movements 0 Exam Sclera are pale. Neck supple without adenopathy thyromegaly or jugular venous distention. Lungs are clear to auscultation. Heart was regular rhythmical with a soft systolic murmur. Abdomen is soft without any tenderness rebound guarding masses or hepatosplenomegaly. Extremities atrophy evidence of any clubbing cyanosis or edema. Skin turgor is improved. Lab and Diagnostics Result Diagram: 05/18/16 0303 05/18/16 0303 X-Rays, CTs and MRIs Chest x-ray IMPRESSION: Low lung volumes and scattered atelectasis. Dictated by: Tejas Wise M.D. on 05/12/2016 at 14:15 12-lead ECG Patient sinus rhythm with a heart rate of 85, QTC of 49, and inverted T waves in the lateral leads. Plan Impression Impression #1 obstructive uropathy #2 bilateral hydronephrosis #3 acute kidney injury secondary to #1 and #2 which is resolving number for hematuria Recommendations #1 would like to start weaning back on his IV fluids and continue to follow his lab. Most likely he can be discharged on the weekend. Plan The patient will continue hyperbaric treatments. Will return () for treatment #() Murali Suarez DO May 18, 2016 11:41
--- NOTE | 2016-05-18 14:36 | NUR ---
NUTRITION ASSESSMENT: ASSESS: Pt is a 76yo M admitted for ESRD. Nephrology is following. Pt continues to require dialysis. He is on a Diabetic diet with good PO at 100% of all meals. Pt has not had a BM in 6 days. Wt is back to admit. PMHX: alcohol abuse LABS: Reviewed. Bun 68, Pelletizer 2.68, Glu 105, Ca 7.6, Alb 2.9 MEDS: Reviewed. Vit D, insulin GI: 0 BM during admit SKIN: Maury 19 CURRENT WTS: 72.7kg, BMI 25.1kg/m2, admit wt 72.7kg DIET: Diabetic. PO 100%, EST. NEEDS: Dialysis Kcals: 2180-2545kcal/day (30-35kcal/kg) Pro: 85-130g/day (1.2-1.8g/day) NUTRITION DIAGNOSIS: 1.) Increased nutrient needs related to increased demand for nutrients as evidence by pt requiring dialysis NUTRITION INTERVENTION: 1.) Continue current diet and sending Nepro at L time. PO is adequate for needs at this time MONITOR / EVAL: PO, wt, labs, POC, nutrition status. Will continue to monitor per moderate nutrition risk guidelines.
--- NOTE | 2016-05-18 15:00 | PCM.PNMED ---
Subjective Date of Service May 18, 2016 Subjective Patient doing well overnight. No complaints this morning. Exam Vital Signs Vital Sign - Last Date Time Temp Pulse Resp B/P Pulse Ox O2 Delivery O2 Flow Rate FiO2 05/18/16 11:34 36.7 83 18 88/57 99 Room Air 05/15/16 12:15 2.00 Intake and Output 05/17/16 05/17/16 05/18/16 Cumulative From/Thru 15:00 23:00 07:00 05/12/16 12:19 - 05/18/16 06:32 Intake Total 2515 ml 1823 ml 31267 ml Output Total 2150 ml 2700 ml 23606 ml Balance 365 ml -877 ml -7379 ml Intake Oral 1280 ml 400 ml 4935 ml IV Total 1235 ml 1423 ml 4616 ml Packed Cells 620 ml Output Urine Total 2150 ml 2700 ml 19504 ml Ultrafiltrate 100 ml # Voids 1 1 # Bowel Movements 0 Exam Gen.: Patient's a good mood today. HEENT: PERRLA; no JVD Cardiovascular: Regular no murmurs rubs or gallops Respiratory: CTA bilateral Abdomen: Nontender, nondistended, Irby in place with light red/purple colored urine. Extremities: Mild pitting the lower extremities, improved since admit. Neuro: Grossly neurologically intact Psych: Appropriate mood and affect Skin: No rashes IVs and Medications Medications Reviewed: Medications were reviewed in detail Lab and Diagnostics Result Diagram: 05/18/16 0303 05/18/16 0303 X-Rays, CTs and MRIs Chest x-ray IMPRESSION: Low lung volumes and scattered atelectasis. Dictated by: Tejas Wise M.D. on 05/12/2016 at 14:15 12-lead ECG Patient sinus rhythm with a heart rate of 85, QTC of 49, and inverted T waves in the lateral leads. Assessment & Plan 76-year-old male with no past medical history not currently taking any medications and presents due to chest pain and shortness of breath severe kidney failure Severe acute on chronic kidney failure and hyperkalemia; present admission; ongoing -Etiology may be multifactorial the patient denies hypertension, he is not diabetic, but he does have a very enlarged prostate suggesting obstructive etiology. -Renal ultrasound revealed bilateral mild hydronephrosis, enlarged prostate -Riby Catheter in place; urine output looks clearer -Currently nephrology is awaiting to evaluate patient's need for further dialysis and to establish care plan moving forward -Per nephrology, IV fluids were reduced to 75 mL an hour of half-normal saline Hematuria, traumatic; npoa, seems to be resolving -Difficult irby placement with continued hematuria 18 hours post placement -H&H < 7 likely not due to hematuria but rather loss from multiple sources and high BUN -Urology consulted and left a note for follow-up plans Chroic Systolic heart failure, poa, ongoing -Echo reveals a global hypokinesis of the left ventricle with ejection fraction of 40%. -Patient is also complaining of increased dyspnea on exertion -We will discharge home on beta billie and DIANDRA inhibitor once blood pressure stable and dialysis plan established New a-fib; npoa; resolved (PAF) -Patient converted back to sinus rhythm -We will continue to monitor Vitamin D deficiency - Vitamin D replacement - Bone density evaluation outpatient Secondary Hyperparathyroidism; poa; ongoing - PTH 320; hyperphosphatemia - Dialysis and phos/ca following - Expected due to renal failure - no cinacalcet as pt is already on dialysis - Renvela Postdialysis hypotension; intermittent; resolved -required emergent dialysis last night, and dialysis again this morning, with anticipated dialysis again tomorrow due to his severe renal failure -developed hypotension with maps hovering in the low to mid 50s -states that he feels tired but denies any chest pain or dizziness or lightheadedness Anemia of CKD s/p aranesp injection and blood transfusion, chronic; is on admission; stable -Likely secondary to chronic kidney disease -Iron, TIBC normal; ferritin elevated Acute on chronic Chest pain; present on admission; resolved -Patient states that he has some chest pain today but denies radiation or tearing pain -Likely due to severe uremia due to kidney failure; no pericarditis -Pt did convert into A-fib for 12 hours back in sinus rhythm Hyperglycemia; was on admission; controlled -Patient is not on any medications that can cause hyperglycemia and presents with severe kidney disease, suggesting possible diabetic nephropathy -A1c 5.8 -Medium correctional -Renal diet Hyperuremia with AG metabolic acidosis; resolved - Pt has bicarb of 6 on admit; extreme BUN - Dialysis - Bicarb is rebounding Peripheral neuropathy; present on admission; stable -Patient has decreased sensation in the plantar surfaces of his feet -Questionable whether this is diabetic, alcoholic, or uremic neuropathy History of alcohol abuse -States he has not had a drink in couple weeks Disposition: Patient is improving. Likely discharge tomorrow or Sunday; pending nephrology. Pain Evaluation: Adequate Pain Control VTE Mechanical Devices: Intermittant Pneumatic CD Resuscitation Status: CPR: Attempt Resuscitation Time spent 30 min Attending Statement Patient seen and examined with house staff, agree with all attached documentation. Louis May DO May 18, 2016 15:00 Tung Pérez MD May 19, 2016 07:40
--- NOTE | 2016-05-18 16:24 | NUR ---
Social Work: Readiness for Discharge D: Pt discussed in am rounds, pt is not medically stable for discharge but is anticipated to be ready for d/c on Sunday. PT was able to work with pt today. Pt able to ambulate 200-250 feet independent of DME. Pt was able to navigate stairs. Recommendation is for HH. TYPE CASTING MACHINE OPERATOR met with pt at bedside to confirm discharge plan and discuss recommendations. Pt agrees with plan to d/c home with HH. HH CHOICE LIST PROVIDED. Pt does not have a preference. TYPE CASTING MACHINE OPERATOR staffed with [facility] who states [facility] holds a contact with [facility] [employer]. CHIEF ACCOUNTING OFFICER will provide referral. F2F in folder for MD signature. A: Pt who is I at baseline. P: Anticipate pt to discharge home with ; [facility] is review. TYPE CASTING MACHINE OPERATOR to continue to follow. Pt states his neighbor will be transporting. MEHRAN Oneill
--- NOTE | 2016-05-18 18:05 | NUR ---
Telemetry Patient SR in the 70-80s with no ectopy. Telemetry DC'd per MD.
[2016-05-19 03:44] LABS: BASOPHILS % (AUTO) 0.1 % (0-3); EOSINOPHILS % (AUTO) 2.2 % (0-5); MONOCYTES % (AUTO) 10.3 % (4-12); Mean Corpuscular Hemoglobin 29.7 pg (27.0-35.0); Mean Corpuscular Volume 92.8 fL (81-100); NEUTROPHILS % (AUTO) 73.4 % (40-74); Platelet Count 248 bil/L (150-400)
[2016-05-19 04:01] LABS: Magnesium 1.6 mg/dL (1.6-2.6); Phosphorus 4.3 mg/dL (2.5-4.9)
--- NOTE | 2016-05-19 04:01 | NUR ---
No Tele/RA/[place] Not on telemetry, VS at base for Pt. A&O x 3 using call light appropriately. room air, 1/2 NS @ 80 , decreased from 125. [place] draining dark red liquid/urine to gravity , no C/O pain
[2016-05-19 04:19] VITALS: BP 125/68; PULSE 86; RESP 19; O2SAT 96
[2016-05-19] MEDS: Insulin LISPRO 300 Unit/3 mL Inj SUBQ SCH ×4 (08:00→21:20)
[2016-05-19 08:12] VITALS: BP 118/73; PULSE 92; RESP 18; O2SAT 96
[2016-05-19] MEDS: Vitamin B Complex/Vit C Tablet PO SCH (08:17)
--- NOTE | 2016-05-19 11:08 | NUR ---
Scheduled Residency Follow up appointment for 05/25/16 check in at 810AM for appointment at 820AM with Patient will get establishment appointment at this appointment and [facility] knows will be set up at this initial appointment. Updated HYDRODYNAMICIST Addendum: 05/19/16 at 1313 by DASH MANUEL CM Faxed referral to [facility] per HYDRODYNAMICIST request.
--- NOTE | 2016-05-19 11:21 | PCM.PNNEPH ---
Subjective Date of Service May 19, 2016 Subjective Skin the patient continues to improve. His blood pressures have ranged between 80 and 120 in the last 24 hours. Intake and output of 4180 3N and 4350 out. He is already had 2350 out today. He states that he is continuing to improve and offers no new complaints of chest pain, shortness of breath, nausea vomiting or diarrhea. This morning his sodium is 140, potassium 4.1, chloride 105, bicarbonate 20, BUN and creatinine were 70 and 2.5 respectively. Exam Vital Signs Vital Sign - Last Date Time Temp Pulse Resp B/P Pulse Ox O2 Delivery O2 Flow Rate FiO2 05/19/16 08:15 Supplement Oxygen 05/19/16 08:12 36.8 92 18 118/73 96 05/15/16 12:15 2.00 Intake and Output 05/18/16 05/18/16 05/19/16 Cumulative From/Thru 15:00 23:00 07:00 05/12/16 12:19 - 05/19/16 06:31 Intake Total 2360 ml 979 ml 94591 ml Output Total 1650 ml 2350 ml 07124 ml Balance 710 ml -1371 ml -8040 ml Intake Oral 840 ml 240 ml 6015 ml IV Total 1520 ml 739 ml 6875 ml Packed Cells 620 ml Output Urine Total 1650 ml 2350 ml 20985 ml Ultrafiltrate 100 ml # Voids 1 # Bowel Movements 2 2 Exam HEENT examination is remarkable for pale sclera. Neck is supple without adenopathy, thyromegaly, or jugular venous distention. Lungs are clear to auscultation. Heart is regular with soft systolic murmur. Abdomen is soft without any tenderness, rebound, guarding, masses, or hepatosplenomegaly. Extremities did not show any evidence of any clubbing cyanosis or edema. Skin turgor is good and there is no evidence of any rashes. Lab and Diagnostics Result Diagram: 05/19/1631405/19/16314 X-Rays, CTs and MRIs Chest x-ray IMPRESSION: Low lung volumes and scattered atelectasis. Dictated by: Tejas Wise M.D. on 05/12/2016 at 14:15 12-lead ECG Patient sinus rhythm with a heart rate of 85, QTC of 49, and inverted T waves in the lateral leads. Plan Impression Impression #1 acute kidney injury secondary to obstructive uropathy which appears to be resolving. #2 anemia which appears multifactorial with superimposed acute blood loss. Recommendation #1 he can be discharged tomorrow and I would like to see him in my office in about 3-4 weeks. Obviously the highest priority is for him to get back into see urology. Plan The patient will continue hyperbaric treatments. Will return () for treatment #() Murali Suarez DO May 19, 2016 11:21
[2016-05-19 12:30] VITALS: BP 126/76; PULSE 85; RESP 18; O2SAT 98
--- NOTE | 2016-05-19 15:16 | PCM.PNMED ---
Subjective Date of Service May 19, 2016 Subjective No overnight events. Pt doing well. Cr improving Exam Vital Signs Vital Sign - Last Date Time Temp Pulse Resp B/P Pulse Ox O2 Delivery O2 Flow Rate FiO2 05/19/16 04:19 36.6 86 19 125/68 96 Room Air 05/15/16 12:15 2.00 Intake and Output 05/18/16 05/18/16 05/19/16 Cumulative From/Thru 15:00 23:00 07:00 05/12/16 12:19 - 05/19/16 06:31 Intake Total 2360 ml 979 ml 20966 ml Output Total 1650 ml 2350 ml 72422 ml Balance 710 ml -1371 ml -8040 ml Intake Oral 840 ml 240 ml 6015 ml IV Total 1520 ml 739 ml 6875 ml Packed Cells 620 ml Output Urine Total 1650 ml 2350 ml 13260 ml Ultrafiltrate 100 ml # Voids 1 # Bowel Movements 2 2 Exam Gen.: Patient's a good mood today. HEENT: PERRLA; no JVD Cardiovascular: Regular no murmurs rubs or gallops Respiratory: CTA bilateral Abdomen: Nontender, nondistended, Irby in place with light red/purple colored urine. Extremities: Mild pitting the lower extremities, improved since admit. Neuro: Grossly neurologically intact Psych: Appropriate mood and affect Skin: No rashes Genitourinary: Urine is clear yellow; hematuria stopped IVs and Medications Medications Reviewed: Medications were reviewed in detail Lab and Diagnostics Result Diagram: 05/19/1631405/19/16314 X-Rays, CTs and MRIs Chest x-ray IMPRESSION: Low lung volumes and scattered atelectasis. Dictated by: Tejas Wise M.D. on 05/12/2016 at 14:15 12-lead ECG Patient sinus rhythm with a heart rate of 85, QTC of 49, and inverted T waves in the lateral leads. Assessment & Plan 76-year-old male with no past medical history not currently taking any medications and presents due to chest pain and shortness of breath severe kidney failure Severe acute on chronic kidney failure and hyperkalemia; present admission; ongoing -Etiology may be multifactorial the patient denies hypertension, he is not diabetic, but he does have a very enlarged prostate suggesting obstructive etiology. -Renal ultrasound revealed bilateral mild hydronephrosis, enlarged prostate -Irby Catheter in place; urine output looks clearer -Currently nephrology is awaiting to evaluate patient's need for further dialysis and to establish care plan moving forward -Per nephrology, IV fluids were reduced to 75 mL an hour of half-normal saline Hematuria, traumatic; npoa, seems to be resolving -Difficult irby placement with continued hematuria 18 hours post placement -H&H < 7 likely not due to hematuria but rather loss from multiple sources and high BUN -Urology consulted and left a note for follow-up plans Systolic heart failure, likely chronic; poa, ongoing -Echo reveals a global hypokinesis of the left ventricle with ejection fraction of 40%. -Patient is also complaining of increased dyspnea on exertion -We will discharge home on beta billie and DIANDRA inhibitor once blood pressure stable and dialysis plan established New a-fib; npoa; resolved -Patient converted back to sinus rhythm -We will continue to monitor Vitamin D deficiency - Vitamin D replacement - Bone density evaluation outpatient Secondary Hyperparathyroidism; poa; ongoing - PTH 320; hyperphosphatemia - Dialysis and phos/ca following - Expected due to renal failure - no cinacalcet as pt is already on dialysis - Renvela Postdialysis hypotension; intermittent; resolved -required emergent dialysis last night, and dialysis again this morning, with anticipated dialysis again tomorrow due to his severe renal failure -developed hypotension with maps hovering in the low to mid 50s -states that he feels tired but denies any chest pain or dizziness or lightheadedness Anemia of CKD s/p aranesp injection and blood transfusion, chronic; is on admission; stable -Likely secondary to chronic kidney disease -Iron, TIBC normal; ferritin elevated Acute on chronic Chest pain; present on admission; resolved -Patient states that he has some chest pain today but denies radiation or tearing pain -Likely due to severe uremia due to kidney failure; no pericarditis -Pt did convert into A-fib for 12 hours back in sinus rhythm Hyperglycemia; was on admission; controlled -Patient is not on any medications that can cause hyperglycemia and presents with severe kidney disease, suggesting possible diabetic nephropathy -A1c 5.8 -Medium correctional -Renal diet Hyperuremia with AG metabolic acidosis; resolved - Pt has bicarb of 6 on admit; extreme BUN - Dialysis - Bicarb is rebounding Peripheral neuropathy; present on admission; stable -Patient has decreased sensation in the plantar surfaces of his feet -Questionable whether this is diabetic, alcoholic, or uremic neuropathy History of alcohol abuse -States he has not had a drink in couple weeks Disposition: Patient is doing well and kidneys are improving. Dr. Suarez wishes to follow through tomorrow with expected discharge. VTE Mechanical Devices: Intermittant Pneumatic CD Resuscitation Status: CPR: Attempt Resuscitation Time spent 30 minutes Attending Statement Patient seen and examined with house staff. Agree with all attached documentation. Louis May DO May 19, 2016 07:27 Tung Pérez MD May 20, 2016 10:40
--- NOTE | 2016-05-19 18:34 | NUR ---
[place]/No tele Pts. urine color is pale yellow and draining with no complications. Pt. states no abdominal pain at this time. Pt. is not on tele and has no c/o pain or CP at this time.
[2016-05-19 23:09] VITALS: BP 108/65; PULSE 85; RESP 16; O2SAT 97
[2016-05-20 03:11] VITALS: BP 111/71; PULSE 86; RESP 16; O2SAT 95
--- NOTE | 2016-05-20 04:50 | NUR ---
Urine Output: Irby catheter patent and draining yellow, clear urine during shift. 2000mL urine drained via irby catheter this shift. Pt. denies pain. No overt signs or symptoms of distress.
[2016-05-20] MEDS: Insulin LISPRO 300 Unit/3 mL Inj SUBQ SCH (08:00)
[2016-05-20 09:03] VITALS: BP 143/87; PULSE 87; RESP 16; O2SAT 99
[2016-05-20] MEDS: Ergocalciferol (Vit D2) 50,000 Unit Capsule PO SCH (09:13)
[2016-05-20] MEDS: Vitamin B Complex/Vit C Tablet PO SCH (09:14)
--- NOTE | 2016-05-20 10:38 | PCM.DIMED ---
Discharge Instructions Date of Service May 20, 2016 Dates of Hospitalization May 12, 2016 at 15:36 Discharge Diagnosis Discharge Diagnosis 1. Obstructive acute renal failure 2. Benign prostate hypertrophy 3. Hematuria Diet Renal Diet Activity Limited until seen by PCP Patient Instructions You will use a irby catheter and leg bag until seen by doctor Follow-up Provider: Radha Guillory MD Follow-up with PCP in: 2 weeks Provider: Murali Suarez DO Follow-up in: 4 weeks Tung Pérez MD May 20, 2016 10:38
[2016-05-20] MEDS ORDERED: TAMS0.4C98 PO (10:39)
--- NOTE | 2016-05-20 12:30 | NUR ---
Discharge Patient left unit with friend and PETROPHYSICIST in a stable condition. All personal belongings with patient, No tele to remove, IV DC'd intact, irby in place draining pale yellow urine to gravity without complication. Switched patient over to leg bag, discussed how to empty bag. Also discussed catheter care and cleaning -- patient verbalized understanding on how to both empty and clean catheter at meatus. New medication of Tamsulosin discussed, next due dose tonight and prescription with patient, all other medications are continued with next due doses. Follow up with nephrology and urology discussed and patient verbalized he will call on Monday 05/22 to set up appointment.
--- NOTE | 2016-05-20 13:32 | PCM.DC.MED ---
Discharge Summary Date of Service May 20, 2016 Dates of Hospitalization Date of Hospital Admission May 12, 2016 at 15:36 Date of Discharge: May 20, 2016 Providers: Admitting Physician: Mark Perea MD Primary Care Physician: Nopcp Attending Physician: Mark Preea MD Diagnosis at Time of Discharge Diagnosis at Time of Discharge 1. Obstructive acute renal failure 2. Benign prostate hypertrophy 3. Hematuria Consultations [place], urology Suarez, nephrology Procedures XRay, CTs & MRIs Chest x-ray IMPRESSION: Low lung volumes and scattered atelectasis. Dictated by: Tejas Wise M.D. on 05/12/2016 at 14:15 PROCEDURE: US RENAL SONOGRAM INDICATIONS: Severe renal insufficiency r/o obstruction TECHNIQUE: Real-time scanning was performed of the kidneys and bladder, with image documentation. COMPARISON: None. FINDINGS: Kidneys: Kidneys are normal in size. Right kidney measures 10.0 cm long; left kidney measures 11.1 cm long. Right renal cortical thickness is 1.6 cm; left renal cortical thickness is 1.8 cm. Renal cortical echotexture is normal. There is mild bilateral hydronephrosis. No renal mass lesions. Bladder: The bladder is decompressed and a Irby catheter is present. The prostate measures 6.4 x 5.9 x 6.6 cm. Miscellaneous: No free pelvic fluid. IMPRESSION: 1. Mild bilateral hydronephrosis. 2. Decompressed bladder and Irby catheter. 3. Enlarged prostate. ECG 12 Lead Patient sinus rhythm with a heart rate of 85, QTC of 49, and inverted T waves in the lateral leads. Cardiac Echo Impression nterpretation Summary The left ventricle is normal in size. There is moderate global hypokinesis of the left ventricle. Left ventricular ejection fraction is estimated to be 40 +/- 5%. There is mild aortic valve sclerosis. There is mild aortic regurgitation. The IVC is dilated (diameter is greater than 2.1 cm) yet it collapses greater than 50% with a sniff. This suggests a right atrial pressure of 8 mm Hg. There is no prior echocardiogram noted for this patient. No other echocardiographic abnormalities seen. Invasive Procedures None Brief History 76-year-old male with no past medical history, who has not seen a doctor since 1970, presents to the ED with 2-3 months of worsening shortness of breath with exertion, back pain, increasing chest pain, and persistent epistaxis. Labwork in the ED showed severe renal failure with a BUNs/cre of 237/19.74. On interview in the emergency department, the patient also attests to possible saddle anesthesia. Patient states that couple months ago he noticed increased exertional dyspnea but denies increased edema for orthopnea, but does attest to possible PND. He is unable to characterize the chest pain states that it does not radiate to his arm or neck, does not increase on exertion. Patient also complains of incontinence. Patient denies fever, chills, nausea, vomiting, radiating or tearing chest pain, sick contacts, dizziness, lightheadedness, abdominal pain, or recent illness. Labwork emergency department revealed severe kidney dysfunction with extreme creatinine 19.74 and a potassium of 8.1. and non-from nephrology was called and patient is being set up for emergent dialysis. Patient's chloride was 95 and bicarbonate was 6. Glucose was elevated 155. LFTs were normal, magnesium was elevated at 3.1, very mild elevated troponin of 0.015, BNP 2478. Patient will have a mild white count 10.7 and hemoglobin of 7.4 with neutrophil count of 91.1. Lactic acid was negative. Chest x-ray was unremarkable for cardiopulmonary disease. Hospital Course 76-year-old male with no past medical history not currently taking any medications and presents due to chest pain and shortness of breath severe kidney failure Severe acute on chronic kidney failure and hyperkalemia; present admission; ongoing -Etiology may be multifactorial the patient denies hypertension, he is not diabetic, but he does have a very enlarged prostate suggesting obstructive etiology. -Renal ultrasound revealed bilateral mild hydronephrosis, enlarged prostate -Irby Catheter in place; urine output looks clearer -Currently nephrology is awaiting to evaluate patient's need for further dialysis and to establish care plan moving forward -Per nephrology, IV fluids were reduced to 75 mL an hour of half-normal saline Hematuria, traumatic; npoa, seems to be resolving -Difficult irby placement with continued hematuria 18 hours post placement -H&H < 7 likely not due to hematuria but rather loss from multiple sources and high BUN -Urology consulted and left a note for follow-up plans Systolic heart failure, likely chronic; poa, ongoing -Echo reveals a global hypokinesis of the left ventricle with ejection fraction of 40%. -Patient is also complaining of increased dyspnea on exertion -We will discharge home on beta billie and DIANDRA inhibitor once blood pressure stable and dialysis plan established New a-fib; npoa; resolved -Patient converted back to sinus rhythm -We will continue to monitor Vitamin D deficiency - Vitamin D replacement - Bone density evaluation outpatient Secondary Hyperparathyroidism; poa; ongoing - PTH 320; hyperphosphatemia - Dialysis and phos/ca following - Expected due to renal failure - no cinacalcet as pt is already on dialysis - Renvela Postdialysis hypotension; intermittent; resolved -required emergent dialysis last night, and dialysis again this morning, with anticipated dialysis again tomorrow due to his severe renal failure -developed hypotension with maps hovering in the low to mid 50s -states that he feels tired but denies any chest pain or dizziness or lightheadedness Anemia of CKD s/p aranesp injection and blood transfusion, chronic; is on admission; stable -Likely secondary to chronic kidney disease -Iron, TIBC normal; ferritin elevated Acute on chronic Chest pain; present on admission; resolved -Patient states that he has some chest pain today but denies radiation or tearing pain -Likely due to severe uremia due to kidney failure; no pericarditis -Pt did convert into A-fib for 12 hours back in sinus rhythm Hyperglycemia; was on admission; controlled -Patient is not on any medications that can cause hyperglycemia and presents with severe kidney disease, suggesting possible diabetic nephropathy -A1c 5.8 -Medium correctional -Renal diet Hyperuremia with AG metabolic acidosis; resolved - Pt has bicarb of 6 on admit; extreme BUN - Dialysis - Bicarb is rebounding Peripheral neuropathy; present on admission; stable -Patient has decreased sensation in the plantar surfaces of his feet -Questionable whether this is diabetic, alcoholic, or uremic neuropathy History of alcohol abuse -States he has not had a drink in couple weeks Disposition: Patient is doing well and kidneys are improving. Dr. Suarez wishes to follow through tomorrow with expected discharge. Hospital course. This is a pleasant gentleman presented with abdominal pain. Tendon that he was found to be acute renal failure. The patient had normal cardiac workup with the exception of a 2-D echo which indicated very mild global left ventricular hypokinesis. He was found to have evidence of obstructive renal failure based on placement of Irby catheter with decompression of a bladder. The patient did have trauma with this catheter insertion resulting in hematuria which cleared over 2 days. The patient's acute renal failure improved with Irby decompression of the next several days. He was initially hyperkalemic and was treated with Kayexalate. The patient otherwise did well. He required now interventions for his acute renal failure. For the question indicated a subacute history of progressive urinary symptoms consistent with BPH. Renal ultrasound was fairly unremarkable. On the day of discharge the patient understood that he had to keep a Irby in place until follow-up with urology about 10 days after discharge. He will also be started on Flomax once daily. Exam Vital Signs (Last) Date Time Temp Pulse Resp B/P Pulse Ox O2 Delivery O2 Flow Rate FiO2 05/20/16 09:03 37.2 87 16 143/87 99 Room Air 05/15/16 12:15 2.00 Exam Alert oriented 3, fluent speech. No distress. Pleasant. Normal rate and effort. Heart is regular without murmur. Abdomen soft nontender Extremities are free of edema. Test 05/12/16 13:12 05/12/16 13:16 05/12/16 15:10 05/12/16 15:42 Iron Level 46ug/dL (35-150) Total Iron Binding Capacity 198ug/dL (250-450) Percent Iron Saturation 23%sat (15-50) Unsaturated Iron Binding 151.5ug/dL Ferritin 543ng/mL (30-400) Pro-B-Type Natriuretic Peptide 2478pg/mL (0-486) Vitamin D 25-Hydroxy 18.8ng/mL (30.0-100.0) Parathyroid Hormone (Intact) 320pg/mL (15-65) Hold [place] Top Tube Received (Received) Lactic Acid Level 0.6mmol/L (0.4-2.0) Hepatitis B Surface Antigen Negative (Negative) Hepatitis B Surface Antibody Non reactive (.) Hepatitis B Core Total Antibody Negative (Negative) Hepatitis C Antibody <0.1s/co ratio (0.0-0.9) HIV (1&2) Ag and Ab, 4th Generation Non reactive (Non Reactive) Urine Random Creatinine 69mg/dL (22-328) Urine Random Total Protein 12mg/dL (0-15) Test 05/12/16 17:45 05/12/16 18:00 05/13/16 02:24 05/13/16 11:25 Hold [place] Top Tube Received (Received) Urine Color Yellow (YELLOW) Urine Appearance Hazy (CLEAR,HAZY) Urine pH 5.5 (5.0-8.0) Urine Specific [place] 1.010 (1.003-1.035) Urine Protein Negativemg/dL (NEG,TRACE) Urine Glucose (UA) Negativemg/dL (NEGATIVE) Urine Ketones Negativemg/dL (NEGATIVE) Urine Occult Blood Large (NEGATIVE) Urine Nitrite Negative (NEGATIVE) Urine Bilirubin Negative (NEGATIVE) Urine Urobilinogen Normalmg/dL (NORMAL) Urine Leukocyte Esterase Negative (NEGATIVE) Urine RBC >50/hpf (0-2) Urine WBC 0-5/hpf (0-5) Urine Epithelial Cells Occasional/hpf (NONE-MOD) Urine Crystals None seen (NONE SEEN) Urine Bacteria Few/hpf (NONE-FEW) Urine Hyaline Casts None/lpf (NONE) Urine Granular Casts None seen (NONE SEEN) Urine Waxy Casts None seen (NONE SEEN) Urine Red Blood Cell Casts None seen (NONE SEEN) Urine White Blood Cell Casts None seen (NONE SEEN) Urine Mucus None seen (None Seen) Urine Trichomonas None seen (NONE SEEN) Urine Yeast None (NONE SEEN) Urinalysis Comment None Urine Culture Reflexed Not indicated Urine Total Protein 16.1mg/dL (Not Estab.) Urine Albumin 63.1% (.) Urine Ryjto-2-Ahknqfql 1.1% (.) Urine Mtims-6-Zvgrvgmcb 11.9% (.) Urine Beta Globulin 12.8% (.) Urine Gamma Globulin 11.1% (.) Urine Protein Electrophoresis Note Comment (.) Urine Monoclonal Protein % Not observed% (Not Observed) Prostate Specific Antigen 29.1ng/mL (0.0-4.0) Hemoglobin A1c 5.8% (4.8-5.6) Test 05/14/16 04:30 05/15/16 04:22 05/16/16 03:01 05/17/16 03:10 Triglycerides Level 136mg/dL (0-149) Cholesterol Level 114mg/dL (100-199) LDL Cholesterol, Calculated 46.800mg/dL (0-99) VLDL Cholesterol 27.200mg/dL HDL Cholesterol 40mg/dL (>39) Cholesterol/HDL Ratio 2.85 (0.0-4.4) Procalcitonin 0.85ng/mL (0.00-0.08) Thyroid Stimulating Hormone (TSH) 2.650uIU/mL (0.450-4.500) Free Thyroxine 0.94ng/dL (0.82-1.77) Troponin T 0.027ug/L (0.0-0.011) Phospholipids Level 169mg/dL (150-250) Prothrombin Time 10.7sec (8.1-12.5) Prothromb Time International Ratio 1.00ratio Test 05/19/16 03:15 White Blood Count 10.5th/mm3 (3.8-10.1) Red Blood Count 2.63mil/mm3 (4.40-5.80) Hemoglobin 7.8g/dL (13.8-17.2) Hematocrit 24.4% (41.0-50.0) Mean Corpuscular Volume 92.8fL (81-100) Mean Corpuscular Hemoglobin 29.7pg (27.0-35.0) Mean Corpuscular Hemoglobin Concent 32.0% (32.0-37.0) Red Cell Distribution Width 14.3% (12.3-15.4) Platelet Count 248bil/L (150-400) Neutrophils (%) (Auto) 73.4% (40-74) Lymphocytes (%) (Auto) 12.8% (14-46) Monocytes (%) (Auto) 10.3% (4-12) Eosinophils (%) (Auto) 2.2% (0-5) Basophils (%) (Auto) 0.1% (0-3) Sodium Level 140mEq/L (134-144) Potassium Level 4.1mEq/L (3.5-5.2) Chloride Level 105mEq/L (97-108) Carbon Dioxide Level 20mmol/L (18-29) Blood Urea Nitrogen 70mg/dL (8-27) Creatinine 2.50mg/dL (0.76-1.27) Estimat Glomerular Filtration Rate 27mL/min (>59) Glucose Level 114mg/dL (60-99) Calcium Level 7.8mg/dL (8.5-10.1) Phosphorus Level 4.3mg/dL (2.5-4.9) Magnesium Level 1.6mg/dL (1.6-2.6) Total Bilirubin 0.2mg/dL (0.0-1.2) Aspartate Amino Transf (AST/SGOT) 38U/L (0-50) Alanine Aminotransferase (ALT/SGPT) 49U/L (0-44) Alkaline Phosphatase 78U/L (25-160) Total Protein 5.5g/dL (6.4-8.4) Albumin 2.9g/dL (3.4-5.0) Discharge Medications Discharge Medications Aspirin (Aspirin) 81 Mg Tablet 81 MG PO DAILY (Reported) Multivitamin W-Minerals/Lutein (Pub Multivitamin 50 Plus Tab) 1 Each Tablet 1 EACH PO DAILY (Reported) Tamsulosin (Flomax) 0.4 Mg Capsule 0.4 MG PO HS Prescribed by: TUNG LARIOS MD Followup Plan Disposition: Home Discharge Diet: Renal Diet Discharge Activity: Limited until seen by PCP Patient Instructions You will use a irby catheter and leg bag until seen by doctor Follow-up Provider: Radha Guillory MD Follow-up with PCP in: 2 weeks Provider: Murali Suarez DO Follow-up in: 4 weeks Time spent 40 minutes Tung Larios MD May 20, 2016 13:32
== END 2016-05-20 12:44 | disposition home health service (06) | DRG 683 ==
LOC: SED 12:16 → CCU 15:36 → PCC 05-14 17:15
PROVIDERS: ADMIT Internal Medicine; ATTEND Internal Medicine
PROC: 5A1D00Z (ICD-10-PCS; principal; 2016-05-12)
PROC: 06HY33Z Insertion of Infusion Device into Lower Vein, Percutaneous Approach (ICD-10-PCS; 2016-05-12)
PROC: 5A1D00Z (ICD-10-PCS; 2016-05-13)
PROC: 30233N1 Transfusion of Nonautologous Red Blood Cells into Peripheral Vein, Percutaneous Approach (ICD-10-PCS; 2016-05-13)
PROC: 5A1D00Z (ICD-10-PCS; 2016-05-14)
PROC: 5A1D00Z (ICD-10-PCS; 2016-05-15)
PROC: 30233N1 Transfusion of Nonautologous Red Blood Cells into Peripheral Vein, Percutaneous Approach (ICD-10-PCS; 2016-05-19)
DX: N17.8 Other acute kidney failure (principal); E87.2 Acidosis; N13.8 Other obstructive and reflux uropathy; I50.22 Chronic systolic (congestive) heart failure; E87.5 Hyperkalemia; N40.1 Benign prostatic hyperplasia with lower urinary tract symptoms; N13.30 Unspecified hydronephrosis; N25.81 Secondary hyperparathyroidism of renal origin; R31.0 Gross hematuria; R15.9 Full incontinence of feces; Z87.891 Personal history of nicotine dependence; D63.1 Anemia in chronic kidney disease; I48.91 Unspecified atrial fibrillation; E55.9 Vitamin D deficiency, unspecified; I95.3 Hypotension of hemodialysis; R73.9 Hyperglycemia, unspecified; R07.9 Chest pain, unspecified; G62.9 Polyneuropathy, unspecified; N18.9 Chronic kidney disease, unspecified

== ENCOUNTER 2016-10-24 18:24 | Emergency (ER) | payer MEDICARE ==
[~2016-10-24] VITALS: Ht 172.7 cm; Wt 69.1 kg
[~2016-10-24 18:24] MED LIST: ASPI-973 PO; MULT-432 PO; TAMS0.4C98 PO
[2016-10-24 18:46] VITALS: BP 166/82; PULSE 73; O2SAT 99
--- NOTE | 2016-10-24 21:57 | ED.REPORT ---
HPI- Male Date of Service Oct 24, 2016 ED Provider: Yaniv Smith MD Patient is a 76 year old male with a history of ESRD who presents to the ED complaining of urinary retention. Associated symptoms include penile pain. He denies abdominal pain or other symptoms at this time. The patient reports that he had this irby catheter removed at 0930 this morning and was able to void immediately after but has been unable to urinate since. He states that he has had the catheter in place since May 2016 due to prostate enlargement. Nursing Notes Stated Complaint: PROSTATE PAIN AFTER BAG REMOVED Chief Complaint: Male Abdominal Pain Nursing Notes Reviewed: Yes Allergies: Coded Allergies: No Known Allergies (Unverified , 05/12/16) Scheduled Aspirin (Aspirin) 81 Mg Tablet 81 MG PO DAILY Multivitamin W-Minerals/Lutein (Pub Multivitamin 50 Plus Tab) 1 Each Tablet 1 EACH PO DAILY Tamsulosin (Flomax) 0.4 Mg Capsule 0.4 MG PO HS General Time Seen by MD: 21:57 Chief Complaint Unable to urinate Hx Obtained From: Patient Arrived By: Walk-in Onset Occurred: 5 - 8 hours ago Symptom Duration: Since onset Location: : Penis Quality: Painful Severity: Current: Moderate Recent Healthcare: Recent doctor visit, Recent hospitalization Past Medical History Past Medical History ESRD prostate enlargement Smoking History Former Smoker Social History Alcohol Use: "Social" Ambulatory Status Independent Review of Systems Constitutional: Denies: Chills, Fever GI: Denies: Abdominal pain, Nausea, Vomiting Male: Reports Testicular pain, Reports Urination decreased Skin: Denies Itching, Denies Rash Complete sys rev & neg: except as marked. Respiratory: Denies: Non-productive cough, Shortness of breath Neurologic: Denies: Numbness, Weakness Physical Exam Initial Vital Signs Vital Signs (First) Date Time Temp Pulse Resp B/P Pulse Ox O2 Delivery O2 Flow Rate FiO2 10/24/16 18:46 36.8 73 166/82 99 Room Air Initial VS: Reviewed Male Genitourinary: Atraumatic, Inspection NL, Penis NL General/Constitutional: Awake, Alert Abdomen: Atraumatic, Soft Skin: Atraumatic, Color NL, No rash, Warm, Dry Head / Eyes: Atraumatic, Normocephalic, PERRL, EOMI Respiratory / Chest: Atraumatic, Breath sounds NL, Breath sounds = bilat, No respiratory distress Cardiovascular: Heart rate NL, Regular rhythm, Heart sounds NL Neurologic: Oriented X3, Speech NL Psychiatric: Affect NL, Mood NL Re-Eval/Medical Decision Re-Evaluation/Progress #1: Time of Eval: 22:05 Re-Evaluation/Progress Note: Plan to place a new Irby catheter Re-Evaluation/Progress #2: Time of Eval: 22:11 Re-Evaluation/Progress Note: Discussed plan for discharge. Patient understands and agrees to plan. All questions were addressed. Counseled Regarding: Diagnosis, Lab results, Need for follow-up, When/why to return to ED Discharge & Departure Impression: Primary Impression: Urinary retention Additional Impression: Urinary catheter (Irby) change required Disposition: Home Discharge Condition All VS Reviewed: Yes Condition: Stable Patient Instructions: Irby Catheter Placement and Care (ED) Additional Instructions: We placed a new Irby catheter today. Call the clinic tomorrow to schedule a follow up appointment with your primary care physician. Return to the emergency department if you develop any new or concerning symptoms. Referrals: [facility] (PCP) [facility] Portions of this note were transcribed by Emma Pierre. I, Dr. Smith personally performed the history, physical exam and medical decision-making; I reviewed and confirmed the accuracy of the information in the transcribed note. Signed by: Ángel Cameron, 10/24/16 Yaniv Smith MD Oct 24, 2016 21:57 Sharon Pierre Oct 24, 2016 22:06
[2016-10-24 23:03] VITALS: BP 152/80; PULSE 69; RESP 16; O2SAT 100
== END 2016-10-24 23:00 | disposition home or self-care (01) ==
LOC: SED 18:24
DX: R33.9 Retention of urine, unspecified (principal); Z46.6 Encounter for fitting and adjustment of urinary device; N18.6 End stage renal disease; Z79.82 Long term (current) use of aspirin